=== PATIENT | female | born 1965 | race Caucasian/White ===

== ENCOUNTER 2017-04-10 22:09 | Emergency (ER) | payer MEDICAID ==
[~2017-04-10] VITALS: Ht 172.7 cm; Wt 99.8 kg
[~2017-04-10 22:09] MED LIST: ASPIRIN325 PO; BACTRIM DS TAB1 EACH PO; CATAPRES-TTS 10.1 MG TD; GLUCOTROL5 MG PO; HYDROCODONE-AP1 EAC6 PO; KEFLEX500 M1 PO; LOPRESSOR50 PO; LOVASTATIN 20 M20 MG PO; METFORMIN HCL850 MG PO; NICOTINE TRANSD21 M1 TRANSDERM; PRINIVIL20 MG PO; TOPROL XL50 MG PO; ZESTRIL20 MG
[2017-04-10] MEDS ORDERED: NORCO 5-325 TA1 EAC1 PO (23:42)
[2017-04-11 00:07] VITALS: BP 126/89
== END 2017-04-11 00:11 | disposition home or self-care (01) ==
LOC: M.ERS 22:09
DX: S00.83XA Contusion of other part of head, initial encounter (principal); S40.012A Contusion of left shoulder, initial encounter; S40.011A Contusion of right shoulder, initial encounter; I10 Essential (primary) hypertension; E11.9 Type 2 diabetes mellitus without complications; M19.90 Unspecified osteoarthritis, unspecified site; Z90.49 Acquired absence of other specified parts of digestive tract; W01.10XA Fall on same level from slipping, tripping and stumbling with subsequent striking against unspecified object, initial encounter; Y93.89 Activity, other specified; Y92.098 Other place in other non-institutional residence as the place of occurrence of the external cause; Y99.8 Other external cause status

== ENCOUNTER 2017-06-12 23:32 | Inpatient (IN) | payer OTHER, MEDICAID ==
[~2017-06-12] VITALS: Ht 172.7 cm; Wt 76.2 kg
[~2017-06-12 23:32] MED LIST changes: +NORCO 5-325 TA1 EAC1 PO
[2017-06-12 23:37] VITALS: BP 123/78
[2017-06-13 00:49] LABS: ABSOLUTE EOSINOPHILS 0.1 thou/uL (0.0-0.7); ABSOLUTE NEUTROPHILS 7.9 thou/uL (1.6-8.1); BASOPHILS 0.2 %; EOSINOPHILS 1.1 %; HEMATOCRIT 41.1 % (37.0-47.0); HEMOGLOBIN 13.8 gm/dL (12.0-15.0); LYMPHOCYTES 18.2 %; MCH 32.1 pg (26.0-34.0); MCHC 33.4 g/dL (28.0-37.0); MCV 96.2 fL (80.0-100.0); MONOCYTES 9.3 %; MPV 8.3 fl. (7.2-11.1); NUCLEATED RBCS 0 /100WBC; PLATELET COUNT* 227 thou/uL (150-400); POLYS 71.2 %; RBC 4.28 mil/uL (4.20-5.00); RDW-CV 14.3 % (10.5-14.5); WBC 11.1 thou/uL (4.0-11.0)
[2017-06-13 00:51] LABS: ALBUMIN 2.2 g/dL (3.4-5.0); CALCIUM 10.2 mg/dL (8.5-10.1); CREATININE 1.2 mg/dL (0.6-1.3); POTASSIUM 3.5 mmol/L (3.5-5.1); TOTAL BILIRUBIN 0.3 mg/dL (<0.1-1.0); TOTAL PROTEIN 6.4 g/dL (6.4-8.2)
--- NOTE | 2017-06-13 02:50 | NUR ---
ACCUCHECK = 304 RN NOTIFIED
[2017-06-13 03:02] VITALS: BP 124/83
[2017-06-13 04:00] VITALS: BP 115/78
--- NOTE | 2017-06-13 05:41 | NUR ---
RECEIVED REPORT FROM ER NURSE STEFANO AT 0245. PT ARRIVED TO UNIT AT 0310. VOICED NO CONCERNS, CARDIAC MONIOTOR IN PLACE, TRACING SINUS RHYTHM WITH PVC. IV FLUIDS INFUSING, CALL LIGHT WITHIN REACH.
[2017-06-13 07:30] VITALS: BP 140/78
[2017-06-13 09:08] LABS: URINE BILIRUBIN NEGATIVE (Negative); URINE BLOOD TRACE (Negative); URINE CLARITY CLEAR; URINE COLOR YELLOW; URINE GLUCOSE-RANDOM 2+ (Negative); URINE KETONES 1+ (Negative); URINE LEUKOCYTES-REFLEX NEGATIVE (Negative); URINE NITRITE-REFLEX NEGATIVE (Negative); URINE PROTEIN TRACE (Negative); URINE SPECIFIC GRAVITY 1.015 (1.005-1.030)
[2017-06-13 09:13] LABS: CALCIUM 9.7 mg/dL (8.5-10.1); CREATININE 0.7 mg/dL (0.6-1.3); POTASSIUM 3.1 mmol/L (3.5-5.1)
[2017-06-13 09:15] LABS: AMP/METHAMP POSITIVE (Negative); BARBITURATES Negative (Negative); BENZODIAZEPINES Negative (Negative); COCAINE Negative (Negative); METHADONE Negative (Negative); OPIATES Negative (Negative); PCP Negative (Negative); THC POSITIVE (Negative)
[2017-06-13 09:17] LABS: CASTS None Seen /LPF (None Seen); CRYSTALS None Seen /LPF (None Seen); MUCUS None Seen strn/LPF (None Seen); SQUAMOUS >10 Many /LPF (0-3); URINE RBC 3-10 Few /HPF (0-2); URINE WBC-REFLEX 6-15 Few /HPF (0-5); YEAST-REFLEX Present (None Seen)
--- NOTE | 2017-06-13 09:21 | NUR ---
RECEIVED PT CARE 0700. PT IS ALERT AND ORIENTED X4. VSS. SKILL TRAINING PROGRAM COORDINATOR TRACING ST. HEART RATE LOW 100'S. PATIENT DENIES ANY SOA. O2 SAT 94% ON ROOM AIR. UP INDEPENDENTLY IN ROOM WITH BATHROOM PRIVILEDGES. GAIT IS STEADY. AM ASSESSMENT CHARTED. MEDS PER MAR. IVF INFUSING. URINE SENT TO LAB FOR UA AND SCREEN. KEEPING CALL LIGHT WITHIN REACH. WILL CONTINUE PLAN OF CARE.
[2017-06-13 11:29] VITALS: BP 186/99
--- NOTE | 2017-06-13 14:25 | NUR ---
CM ASSESSMENT: Pt is A&O. Resides at home with her kids. Independent with ADLs, continues to work outside of the home. No DME. No hx of HH or SNF. CM to assist with setting up PCP appt at dc. Goal is to return home once medically stable for dc.
[2017-06-13 15:08] VITALS: BP 119/73
--- NOTE | 2017-06-13 17:28 | NUR ---
PATIENT PROGRESSING TOWARDS GOALS. PAIN CONTROLLED WITH PRN PAIN MEDICATION. NO COMPLAINTS OF SOA THIS SHIFT. UP IN ROOM INDEPENDENTLY WITH BATHROOM PRIVILEDGES. GAIT IS STEADY. SHE IS TOLERATING HER DIET WELL WITHOUT ANY NAUSEA OR VOMITING. HOURLY ROUNDING CHARTED. CALL LIGHT WITHIN REACH. WILL CONTINUE TO MONITOR.
[2017-06-13 19:08] LABS: GLYCOHEMOGLOBIN (HGB A1C) 13.4 % (4.8-5.6)
[2017-06-13 20:00] VITALS: BP 135/83
[2017-06-14 04:00] VITALS: BP 134/88
--- NOTE | 2017-06-14 04:28 | NUR ---
ASSUMED CARE OF PT AT 1915, NURSING ASSESSMENT COMPLETED AT START OF SHIFT, PT MED SURG STATUS. DENIES PAIN AT START OF SHIFT, HOURLY ROUNDING COMPLETED. AT 2200, PT C/O BLOODY PILLOWCASE, MODERATE AMOUNT OF PINK, THICK, PURULENT DRAINAGE OBSERVED FROM ABCESS. CLEANED WOUND, REPACKED AND COVERED WITH ABD PAD THIS SHIFT. DRESSING REMAINS INTACT. AT 0400, PT C/O FEELING EXTREMILY ANXIOUS, STATED SHE WANTED HER NICOTINE PATCH OR SHE WOULD LEAVE AMA. OLD NICOTINE PATCH REMOVED FROM RIGHT UPPER BACK AND NEW ONE PLACED ON LEFT UPPER BACK. PT CALM AND RESTING IN BED AT THIS TIME.
[2017-06-14 05:25] LABS: HEMATOCRIT 41.7 % (37.0-47.0); HEMOGLOBIN 13.7 gm/dL (12.0-15.0); MCHC 32.9 g/dL (28.0-37.0); MCV 97.2 fL (80.0-100.0); MPV 8.4 fl. (7.2-11.1); RBC 4.29 mil/uL (4.20-5.00); RDW-CV 14.3 % (10.5-14.5); WBC 7.8 thou/uL (4.0-11.0)
[2017-06-14 05:41] LABS: ALBUMIN 1.8 g/dL (3.4-5.0); CALCIUM 10.1 mg/dL (8.5-10.1); CREATININE 0.8 mg/dL (0.6-1.3); MAGNESIUM 1.4 mg/dL (1.8-2.4); POTASSIUM 4.3 mmol/L (3.5-5.1); TOTAL BILIRUBIN 0.3 mg/dL (<0.1-1.0); TOTAL PROTEIN 5.8 g/dL (6.4-8.2)
[2017-06-14 07:45] VITALS: BP 137/79
--- NOTE | 2017-06-14 08:13 | NUR ---
RECIEVED REPORT FROM PEDRITO AND ASSUMED CARE OF PT @ 0467. PT IS A/O X4,VSS,MED-SURG STATUS.LUNG SOUNDS ARE CLEAR ON ROOM AIR.LAST BM WAS ON 06/11/17 WITH SOFT ABDOMEN AND ACTIVE BOWEL SOUNDS.IV RIGHT FOREARM PATENT WITH NS RUNNING AT 130ML/HR.PT IS CALM AND COOPERATIVE WITH NO C/O PAIN AT TIME OF ASSESSMENT. PT IS UP AD SHARON.PT WAS LEFT SLEEPING IN BED WITH CALL LIGHT IN PLACE. WILL CONTINUE TO MONITOR.
--- NOTE | 2017-06-14 15:32 | NUR ---
REPORT GIVEN TO CONNIE.PT NOTIFIED OF TRANSFER.ALL PERSONAL BELONGINGS PACKED AND TAKEN WITH PT.
--- NOTE | 2017-06-14 20:12 | NUR ---
PATIENT TO ROOM 305 THIS AFTERNOON, DENIES PAIN, COMPLIANT WITH CARE, A/O, UP AD SHARON. PATI IV ABT WITHOUT DIFF, INCISION TO UPPER THORACIC MIDLINE AREA UNREMARKABLE, WARM COMPRESS PLACED AGAINST INCISION, DRAINING PURULENT BROWN THICK FLUID IN MOD AMT. PROGRESSING WELL TOWARD DISCHARGE GOALS, AGREE WITH PRIOR ASSESSMENT, CONT POC.
[2017-06-15 00:38] VITALS: BP 161/84
[2017-06-15 04:32] LABS: HEMATOCRIT 42.6 % (37.0-47.0); HEMOGLOBIN 13.8 gm/dL (12.0-15.0); MCH 31.5 pg (26.0-34.0); MCHC 32.4 g/dL (28.0-37.0); MCV 97.3 fL (80.0-100.0); MPV 8.3 fl. (7.2-11.1); RBC 4.38 mil/uL (4.20-5.00); RDW-CV 14.2 % (10.5-14.5)
[2017-06-15 04:44] LABS: CALCIUM 10.3 mg/dL (8.5-10.1); CREATININE 0.7 mg/dL (0.6-1.3); MAGNESIUM 1.6 mg/dL (1.8-2.4); POTASSIUM 4.3 mmol/L (3.5-5.1)
--- NOTE | 2017-06-15 06:07 | NUR ---
ASSESSMENT COMPLETE. PT SLEPT MOST OF THE NIGHT. PRN PAIN MEDICATION GIVEN ONCE NEEDED. PT IS ON ROOM AIR WITH ADEQAUTE SATS. PT DENIES N/V. DRESSING TO BACK C/D/I. PT IS UP AD SHARON WITH STEADY GAIT. SEE ASSESSMENT AND VITALS FOR OTHER DETAILS. CALL LIGHT WITHIN REACH, WILL CONTINUE TO MONITOR
[2017-06-15 08:15] VITALS: BP 155/106
--- NOTE | 2017-06-15 14:02 | NUR ---
SW met with pt and provided list of resources and of referral for possible primary care physicians for pt to choose to follow up with after dc from the hospital. Pt said okay and was sleepy at the time. SW to continue to follow.
[2017-06-15 15:15] VITALS: BP 182/110
--- NOTE | 2017-06-15 17:10 | NUR ---
PATIENT HAS BEEN A/O X 4 THIS SHIFT. MEDICATED FOR PAIN X 1 WITH FENTANYL WITH GOOD RELIEF. IV ANTIBIOITCS INFUSING PER ORDERS. UP AD SHARON IN ROOM. GIVEN MIRALAX FOR COMPLAINTS OF CONSTIPATION. BP ELEVATED AND DR BURGOS NOTIFIED, NEW ORDERS RECEIVED. DRESSING INTACT TO BACK, WARM COMPRESSES GIVEN. ENCOURAGED SHOWERING TODAY. PATIENT UPDATED ON NEW MEDS AND ORDERS. HOURLY ROUNDING COMPLETED. CALL LIGHT WITHIN REACH. WILL CONTINUE WITH PLAN OF CARE.
[2017-06-16] VITALS (7 sets, daily range): BP systolic 148–157; BP diastolic 84–87
[2017-06-16 04:25] LABS: HEMATOCRIT 44.7 % (37.0-47.0); HEMOGLOBIN 14.7 gm/dL (12.0-15.0); MCH 31.8 pg (26.0-34.0); MCHC 32.9 g/dL (28.0-37.0); MCV 96.8 fL (80.0-100.0); MPV 7.9 fl. (7.2-11.1); RBC 4.61 mil/uL (4.20-5.00); RDW-CV 14.4 % (10.5-14.5); WBC 6.8 thou/uL (4.0-11.0)
[2017-06-16 05:01] LABS: ALBUMIN 2.2 g/dL (3.4-5.0); CALCIUM 10.5 mg/dL (8.5-10.1); CREATININE 0.7 mg/dL (0.6-1.3); MAGNESIUM 1.7 mg/dL (1.8-2.4); POTASSIUM 4.6 mmol/L (3.5-5.1); TOTAL BILIRUBIN 0.3 mg/dL (<0.1-1.0); TOTAL PROTEIN 5.9 g/dL (6.4-8.2)
--- NOTE | 2017-06-16 05:51 | NUR ---
ASSESSMENT COMPLETE. PT SLEPT THROUGH THE NIGHT WITHOUT ANY CONCERNS. PT DENIES NEED FOR PAIN MEDICATION. PT DENIES N/V. PT IS ON ROOM AIR WITH ADEQAUTE SATS, VITALS STABLE. PT GIVEN IV ABX ORDERED, REFUSES IV FLUIDS. PT REPORTS CONSTIPATION, PRN MIRALAX GIVEN. DRESSING TO ABCESS C/D/I. PT IS UP AD SHARON WITH STEADY GAIT. SEE ASSESSMENT AND VITALS FOR OTHER DETAILS. CALL LIGHT WITHIN REACH, WILL CONTINUE PLAN OF CARE
[2017-06-16] MEDS ORDERED: CLEOCIN HCL150 MG PO (08:08)
[2017-06-16] MEDS ORDERED: GLUCOPHAGE500 MG PO (08:08)
[2017-06-16] MEDS ORDERED: LISINOPRIL20 MG PO (08:08)
[2017-06-16] MEDS ORDERED: GLUCOTROL5 MG PO (08:08)
[2017-06-16] MEDS ORDERED: NORVASC10 MG PO (08:08)
[2017-06-16] MEDS ORDERED: NORCO 7.5-3251 EACH PO (08:08)
--- NOTE | 2017-06-16 09:49 | NUR ---
SALOMÓN met with pt to discuss dc home today and HH services for wound care. Pt said that she would like the services arranged if possible and confirmed pt does have a type of Medicaid but [facility] Medicaid. SALOMÓN called [facility] services at [phone] and provided referral, referral accepted. SALOMÓN faxed information and dc orders, med list, info on wound care to fax [phone] and confirmed with [facility] that referral was received. Pt also said that her niece is a nurse and may be able to help change dressing as well until the HH can meet with pt on Sunday.
--- NOTE | 2017-06-16 12:03 | NUR ---
EDGARD IS ALERT AND ORIENTED TODAY, VITAL SIGNS STABLE ON ROOM AIR. DRESSING CHANGED AND PHOTO TAKEN PRIOR TO DISCHARGE. DISCHARGE INSTRUCTIONS GIVEN, PRESCRIPTIONS GIVEN AND QUESTIONS ANSWERED FOR PATIENT AND FAMILY.
== END 2017-06-16 11:50 | disposition home health service (06) | DRG 540 ==
LOC: M.ERS 23:32 → M.2W 06-13 02:33 → M.TBA-ER 06-13 02:33 → M.2W 06-13 02:47 → M.3W 06-14 15:36
PROVIDERS: Emergency Medicine; Family Medicine; Internal Medicine; ADMIT Internal Medicine
PROC: 0H9BXZZ Drainage of Right Upper Arm Skin, External Approach (ICD-10-PCS; principal; 2017-06-13)
DX: M86.8X1 Other osteomyelitis, shoulder (principal); E87.1 Hypo-osmolality and hyponatremia; I25.10 Atherosclerotic heart disease of native coronary artery without angina pectoris; F17.210 Nicotine dependence, cigarettes, uncomplicated; I10 Essential (primary) hypertension; E11.65 Type 2 diabetes mellitus with hyperglycemia; F12.90 Cannabis use, unspecified, uncomplicated; F15.90 Other stimulant use, unspecified, uncomplicated; Z90.49 Acquired absence of other specified parts of digestive tract; Z79.1 Long term (current) use of non-steroidal anti-inflammatories (NSAID)

== ENCOUNTER 2018-02-13 14:24 | Inpatient (IN) | payer OTHER, MEDICAID ==
[~2018-02-13] VITALS: Ht 167.6 cm; Wt 77.6 kg
[2018-02-13] VITALS (9 sets, daily range): BP systolic 123–161; BP diastolic 70–89
[~2018-02-13 14:24] MED LIST changes: +CLEOCIN HCL150 MG PO; +GLUCOPHAGE500 MG PO; +LISINOPRIL20 MG PO; +NORCO 7.5-3251 EACH PO; +NORVASC10 MG PO
[2018-02-13] MEDS ORDERED: CARVEDILOL6.25 M1 PO (14:33)
[2018-02-13] MEDS ORDERED: LIPITOR 20 MG T20 M1 PO (14:34)
[2018-02-13 14:55] LABS: ABSOLUTE EOSINOPHILS 0.2 thou/uL (0.0-0.7); ABSOLUTE LYMPHOCYTES 2.4 thou/uL (0.8-5.3); ABSOLUTE MONOCYTES 0.6 thou/uL (0.0-1.2); ABSOLUTE NEUTROPHILS 6.1 thou/uL (1.6-8.1); BASOPHILS 0.2 %; EOSINOPHILS 2.3 %; HEMATOCRIT 42.2 % (37.0-47.0); HEMOGLOBIN 14.1 gm/dL (12.0-15.0); LYMPHOCYTES 25.5 %; MCH 32.5 pg (26.0-34.0); MCHC 33.5 g/dL (28.0-37.0); MONOCYTES 6.4 %; MPV 7.6 fl. (7.2-11.1); NUCLEATED RBCS 0 /100WBC; PLATELET COUNT* 277 thou/uL (150-400); POLYS 65.6 %; RBC 4.35 mil/uL (4.20-5.00); RDW-CV 13.3 % (10.5-14.5); WBC 9.3 thou/uL (4.0-11.0)
[2018-02-13 15:01] LABS: CALCIUM 9.9 mg/dL (8.5-10.1); CREATININE 1.1 mg/dL (0.6-1.3); POTASSIUM 3.6 mmol/L (3.5-5.1)
[2018-02-13 15:11] LABS: ALBUMIN 2.9 g/dL (3.4-5.0); MAGNESIUM 1.4 mg/dL (1.8-2.4); TOTAL BILIRUBIN 0.5 mg/dL (<0.1-1.0); TOTAL PROTEIN 7.2 g/dL (6.4-8.2)
[2018-02-13 15:16] LABS: TROPONIN-I LEVEL 1.71 ng/mL (<0.06)
[2018-02-13 16:22] LABS: CHOLESTEROL 107 mg/dL (<200); HDL CHOLESTEROL 40 mg/dL (>40); LDL CHOLESTEROL 51 mg/dL (<100); SERUM ASSESSMENT Clear; TC:HDL 2.7 Ratio (Not establshd); TRIGLYCERIDE 84 mg/dL (<150); VLDL 17 mg/dL (<40)
[2018-02-14] VITALS (7 sets, daily range): BP systolic 110–168; BP diastolic 72–98
[2018-02-14 05:31] LABS: HEMATOCRIT 39.2 % (37.0-47.0); HEMOGLOBIN 13.3 gm/dL (12.0-15.0); MCH 32.8 pg (26.0-34.0); MCHC 33.9 g/dL (28.0-37.0); MCV 96.8 fL (80.0-100.0); MPV 7.8 fl. (7.2-11.1); RBC 4.05 mil/uL (4.20-5.00); RDW-CV 13.4 % (10.5-14.5); WBC 8.9 thou/uL (4.0-11.0)
[2018-02-14 07:06] LABS: CALCIUM 9.5 mg/dL (8.5-10.1); CREATININE 0.9 mg/dL (0.6-1.3); MAGNESIUM 1.4 mg/dL (1.8-2.4); POTASSIUM 3.7 mmol/L (3.5-5.1)
--- NOTE | 2018-02-14 08:06 | CON ---
[address] [address] CONSULTATION Name: TRI MORSE Room: [address] IN ..#: [id number] Admission: 02/13/18 Attend Phys: Guru Dominguez Discharge: Date of : 69 Report #: [id number] THIS REPORT FOR: //name// CC: NANO physician/PCP Jamaal Kelly DATE OF SERVICE: 02/13/2018 INDICATION: Non-ST elevation myocardial infarction. HISTORY OF PRESENT ILLNESS: The patient is a 52-year-old white female with history of coronary artery disease. She reports percutaneous coronary intervention on 2 separate occasions remotely. She states one stent was placed to the " maker" many years ago. The patient states since last Sunday, she has been having intermittent chest pain. An EKG in the Emergency Room shows sinus rhythm with PACs without acute ST segment elevation. Her troponin is 1.71. She states the pain presently is stable, but has been intermittent throughout last week and then through the early part of this week. She is without other cardiac complaint at this time. PAST MEDICAL HISTORY: 1. Coronary artery disease with myocardial infarction treated in approximately 2009 and 2015. 2. Type 2 diabetes mellitus. 3. Hyperlipidemia. 4. Tobacco use. FAMILY HISTORY: Positive for coronary artery disease. SOCIAL HISTORY: The patient smokes tobacco. ALLERGIES: None documented. HOME MEDICATIONS: Amlodipine 10 mg daily, atorvastatin 20 mg daily, carvedilol 6.25 mg b.i.d., glipizide 5 mg b.i.d., metformin 500 mg b.i.d. REVIEW OF SYSTEMS: A 14-point review of systems as per HPI, otherwise unremarkable. PHYSICAL EXAMINATION: VITAL SIGNS: Blood pressure 155/86, pulse 64 and regular. GENERAL: This is a pleasant white female who does not appear to be in acute distress. HEENT: Extraocular muscles intact. Mucous membranes moist. NECK: Shows no obvious jugular venous distention. There are no carotid bruits. CHEST: Reveals diminished breath sounds with slight expiratory [place] [address] CONSULTATION Name: MORSETRI Room: [address] IN [facility]#: [id number] Admission: 02/13/18 Attend Phys: Guru Dominguez Discharge: Date of : 69 Report #: [id number] not appreciate rales. CARDIOVASCULAR: Reveals a regular rhythm, normal S1 and S2. I do not appreciate gallop or murmur. ABDOMEN: Reveals normal bowel sounds. The abdomen is soft and nontender. EXTREMITIES: Shows no edema. Peripheral pulses 2+ and palpable. SKIN: Warm and dry. A 12-lead EKG shows sinus rhythm with possible inferior Q-waves. There are occasional premature atrial contractions. No acute ST segment abnormalities noted. LABORATORY DATA: Labs are reviewed. Electrolytes are within normal limits. BUN 20, creatinine 1.1, serum glucose 182. LFTs within normal limits. Initial troponin is 1.71. NT-proBNP is 1516. White blood cell count 9.3, hemoglobin 14.1, platelet count 277,000. IMPRESSION AND RECOMMENDATIONS: 1. Non-ST elevation myocardial infarction. We will proceed directly to the catheterization lab for coronary angiography and possible intervention. Further treatment will be pending the results of that study. 2. Coronary artery disease. Continue daily aspirin. 3. Hypertension. Continue carvedilol at current dose. 4. Diabetes per hospitalist. 5. Chronic tobacco use, cessation advised. <ELECTRONICALLY SIGNED> By: Bernardo Lawrence MD, FACC 02/14/18 0806 1601 1839Micedmar Lawrence MD, FACC /nt
[2018-02-15] VITALS: BP 159/77
[2018-02-15 04:00] VITALS: BP 132/97
[2018-02-15 08:02] VITALS: BP 145/77
[2018-02-15 12:00] VITALS: BP 151/89
--- NOTE | 2018-02-15 14:42 | EKG ---
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: : 1965 Requested By: Marlon Edmond Order Number: [id number] MD: Travis Bullock Measurements Intervals [place] Rate: 73 P: 71 GA: 179 QRS: -14 QRSD: 85 T: -20 QT: 379 QTc: 418 Interpretive Statements Sinus rhythm Atrial premature complex Inferior infarct, age indeterminate anteroseptal scar Compared to ECG 06/28/2014 00:12:35 Atrial premature complex(es) now present Myocardial infarct finding now present Electronically Signed On 02-15-2018 14:42:06 TUNG NUT GROWER by Travis Bullock [email or web address] <ELECTRONICALLY SIGNED> By: Travis Bullock MD, [facility] 02/15/18 1442 1426 1426 Travis Bullock MD, [facility] /EPI
--- NOTE | 2018-02-15 14:49 | EKG ---
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 02/15/18 1449 0500 0500 Travis Bullock MD, FAC /EPI
[2018-02-15 14:50] VITALS: BP 168/94
[2018-02-15] MEDS ORDERED: ASPIR 8181 MG PO (15:17)
[2018-02-15] MEDS ORDERED: NITROGLYCERIN0.4 MG SUBLING (15:20)
[2018-02-15] MEDS ORDERED: LOPRESSOR25 PO (15:22)
[2018-02-15] MEDS ORDERED: BRILINTA90 MG PO (15:23)
[2018-02-15 15:24] VITALS: BP 168/94
--- NOTE | 2018-02-16 11:58 | CARD ---
[address] [address] CARDIAC CATH REPORT Name: TRI MROSE Room: [address] IN ..#: [id number] Admission: 02/13/18 Attend Phys: Guru Dominguez Discharge: 02/15/18 Date of : 69 Report #: [id number] THIS REPORT FOR: //name// APPROVED REPORT Study performed: 02/13/2018 15:55:43 Patient Details Patient Status: In-Patient Room #: 212 The patient is a 52 year-old female Event Personnel Bernardo Lawrence Medical Parasitologist, Travis Bullock Beef Breaker, Freda Marx RN Office Clerk, Minoo Ortega RN Monitor, Lamont Haney (R) Scrub Procedures Performed Art Access - R femoral artery* Left Heart Cath w/or w/o Coronaries C ETHAN Revasc AMI Total/Sub Single RCA AMIREVSING Hemostasis w/ Angioseal Indication Non-STEMI Risk Factors Hypercholesterolemia, Hypertension Admission/Lab Medications/Medications given during procedure Aspirin, Platelet Aff. Inhib., Angiomax bolus and infusion Procedure Narrative The patient was brought urgently to the Cardiac Catheterization Laboratory and was prepped and draped in a sterile manner. The right femoral was infiltrated with 2% Lidocaine subcutaneous anesthesia. A [place] 6 FR sheath was inserted into the right femoral artery. Coronary angiography was performed using coronary diagnostic catheters. The right coronary system was accessed and visualized with a 6Fr JR4 catheter. The left coronary system was accessed and visualized with a 6Fr JL4 catheter. The left ventricle was accessed and visualized with a 6Fr. Str. PIG catheter. Left ventricular/Aortic Valve gradient assessed via catheter pullback. Pre-demployment femoral angiogram was performed . Closure device was deployed with a 6 Fr Angioseal. The patient tolerated the procedure well and there were no complications associated with the procedure. [place] [address] CARDIAC CATH REPORT Name: TRI MORSE Room: [address]#: [id number] Admission: 02/13/18 Attend Phys: Guru Dominguez Discharge: 02/15/18 Date of : 69 Report #: [id number] Intraoperative Conscious Sedation Fentanyl 50 mcg Dose: 1696 mGy Contrast Type and Amount: Visipaque 380 ml Diagnostic Cath Left Main 0% narrowing LAD For the proximal LAD narrowing with tandem 80% mid vessel stenosis and 60% tubular distal narrowing Circumflex 75% proximal stenosis with 90% tubular distal stenosis Right Coronary 90% tubular proximalmid vessel narrowing with prominent intraluminal thrombus and 75% distal right coronary in-stent restenosis Left Ventriculography The left ventricle is normal in size with normal contractility. The left ventricular ejection fraction is estimated to be 60%. Left ventricular wall motion abnormalities are not present. There is no mitral insufficiency. Hemodynamics The aortic pressure is 133/73 mmHg with a mean of 98 mmHg. The left ventricular pressure is 147/2 mmHg with a mean of mmHg. The left ventricular end diastolic pressure is 13 mmHg. There was no gradient across the aortic valve upon pullback. PCI Technique Lesion Anticoagulation was achieved with Angiomax. and aggrastat Patient was preloaded with Angiomax IV 11 ml. Percutaneous coronary intervention was performed on the proximal right coronary artery. The lesion stenosis prior to intervention was 90% with JASWINDER 3 flow. A 6F JR 4.0 Guide Catheter was used to engage the right ostium. A IG: ProwaterFlex 180CM Interventional Guidewire was used to cross the lesion. BALLOON DILATION A Balloon catheter Mini Trek RX 2.0 X 15 was inserted and inflated up to 12.00atm for 11seconds. STENT DEPLOYMENT A drug-eluting stent Xience Zina 3.0X38mm was inserted and inflated up to 18.00atm for 14seconds. Additional Inflation: 22.00atm for 11seconds. [place] [address] CARDIAC CATH REPORT Name: LAURYN MORSECLEMENTINE FAYE Room: [address] IN M.R.#: [id number] Admission: 02/13/18 Attend Phys: Guru Dominguez Discharge: 02/15/18 Date of : 69 Report #: [id number] Final angiography reveals 10 % stenosis with JASWINDER 3 flow. PCI Technique Lesion 2 Percutaneous Coronary Intervention was performed on the Distal right coronary artery. The lesion stenosis prior to intervention was 75% with JASWINDER 3 flow. Balloon Dilation A Balloon catheter NC Trek RX 2.5 X 12 was inserted and inflated up to 16.00atm for 8seconds. Additional Inflation: 16.00atm for 10seconds. Stent Deployment A drug-eluting stent Xience Zina 2.5X18mm was inserted and inflated up to 14.00atm for 10seconds. Additional Inflation: 15.00atm for 7seconds. Final angiography reveals 0 % stenosis with JASWINDER 3 flow. Conclusion #1 significant coronary artery disease characterized by following: A 90% proximal right coronary stenosis with prominent intraluminal thrombus associated with a non-ST segment elevation myocardial infarction with 75% distal right coronary in-stent restenosis B 40% proximal LAD with narrowing with tandem 80% mid vessel stenoses and 60% tubular distal narrowing C nondominant circumflex with 75% proximal stenosis and 90% tubular distal stenosis #2 normal left ventricular systolic function, estimate ejection fraction being 60% #3 normal left-sided hemodynamics study #4 successful percutaneous coronary intervention with deployment of drug-eluting stent at site of 90% proximalmid right coronary stenosis with prominent intraluminal thrombus with 10% residual narrowing no residual thrombus noted and JASWINDER-3 flow the distal vessel #5 successful percutaneous coronary intervention [place] [address] CARDIAC CATH REPORT Name: TRI MORSE Room: [address]#: [id number] Admission: 02/13/18 Attend Phys: Guru Dominguez Discharge: 02/15/18 Date of : 69 Report #: [id number] drug-eluting stent at site of 75% distal right coronary in-stent restenosis with 0% residual narrowing Recommendations Smoking Cessation Cardiac Risk Reduction Program Aggressive Medical Therapy Medications Administered Aspirin (any) Ticagrelor Diagnostic Cath Approved by: Bernardo Lawrence MD Date/Time: 02/16/2018 11:56:59 <ELECTRONICALLY SIGNED> By: Travis Bullock MD, FACC 02/16/18 1158 1158 1158Travis Bullock MD, FACC /INF
== END 2018-02-15 15:58 | disposition home or self-care (01) | DRG 246 ==
LOC: M.ERS 14:24 → M.TBA-ER 15:33 → M.2W 17:46
PROVIDERS: Emergency Medicine Emergency Medical Services; Internal Medicine Cardiovascular Disease; ADMIT Internal Medicine
PROC: 027035Z Dilation of Coronary Artery, One Artery with Two Drug-eluting Intraluminal Devices, Percutaneous Approach (ICD-10-PCS; principal; 2018-02-13)
PROC: 4A023N7 Measurement of Cardiac Sampling and Pressure, Left Heart, Percutaneous Approach (ICD-10-PCS; principal; 2018-02-13)
PROC: B211YZZ Fluoroscopy of Multiple Coronary Arteries using Other Contrast (ICD-10-PCS; principal; 2018-02-13)
DX: T82.855A Stenosis of coronary artery stent, initial encounter (principal); I21.4 Non-ST elevation (NSTEMI) myocardial infarction; E11.9 Type 2 diabetes mellitus without complications; E78.5 Hyperlipidemia, unspecified; F17.210 Nicotine dependence, cigarettes, uncomplicated; I25.10 Atherosclerotic heart disease of native coronary artery without angina pectoris; I10 Essential (primary) hypertension; I25.2 Old myocardial infarction; Z95.5 Presence of coronary angioplasty implant and graft; Z90.49 Acquired absence of other specified parts of digestive tract; Y83.8 Other surgical procedures as the cause of abnormal reaction of the patient, or of later complication, without mention of misadventure at the time of the procedure; Y92.89 Other specified places as the place of occurrence of the external cause; Z82.49 Family history of ischemic heart disease and other diseases of the circulatory system; Z71.6 Tobacco abuse counseling; Z28.21 Immunization not carried out because of patient refusal

== ENCOUNTER 2018-03-08 09:43 | Observation (INO) | payer OTHER, MEDICAID ==
[2018-03-08] VITALS (16 sets, daily range): BP systolic 135–175; BP diastolic 80–102
[~2018-03-08] VITALS: Ht 160 cm; Wt 81.6 kg
[~2018-03-08 09:43] MED LIST changes: +ASPIR 8181 MG PO; +BRILINTA90 MG PO; +CARVEDILOL6.25 M1 PO; +LIPITOR 20 MG T20 M1 PO; +LOPRESSOR25 PO; +NITROGLYCERIN0.4 MG SUBLING
[2018-03-08 10:11] LABS: ABSOLUTE EOSINOPHILS 0.4 thou/uL (0.0-0.7); ABSOLUTE LYMPHOCYTES 2.4 thou/uL (0.8-5.3); ABSOLUTE MONOCYTES 0.4 thou/uL (0.0-1.2); ABSOLUTE NEUTROPHILS 5.5 thou/uL (1.6-8.1); BASOPHILS 0.5 %; EOSINOPHILS 4.1 %; HEMATOCRIT 41.1 % (37.0-47.0); HEMOGLOBIN 13.7 gm/dL (12.0-15.0); LYMPHOCYTES 27.4 %; MCH 31.9 pg (26.0-34.0); MCHC 33.4 g/dL (28.0-37.0); MCV 95.7 fL (80.0-100.0); MONOCYTES 5.1 %; MPV 7.7 fl. (7.2-11.1); NUCLEATED RBCS 0 /100WBC; PLATELET COUNT* 292 thou/uL (150-400); POLYS 62.9 %; RBC 4.29 mil/uL (4.20-5.00); RDW-CV 13.2 % (10.5-14.5); WBC 8.7 thou/uL (4.0-11.0)
[2018-03-08 10:23] LABS: ANION GAP 5 mmol/L (7-16); BUN 19 mg/dL (7-18); CALCIUM 10.2 mg/dL (8.5-10.1); CHLORIDE 99 mmol/L (98-107); CO2 33 mmol/L (21-32); CREATININE 1.1 mg/dL (0.6-1.3); GLUCOSE 199 mg/dL (70-99); POTASSIUM 3.6 mmol/L (3.5-5.1); SODIUM 137 mmol/L (136-145)
[2018-03-08 10:26] LABS: PROTIME 10.5 Seconds (9.20-11.50)
[2018-03-08 10:48] LABS: ALBUMIN 3.1 g/dL (3.4-5.0); ALKALINE PHOSPHATASE 86 U/L (46-116); CK-MB MASS 1.3 ng/mL (<0.5-3.6); LIPASE 103 U/L (73-393); MAGNESIUM 1.3 mg/dL (1.8-2.4); NT-PRO BRAIN NAT PEPTIDE 687 pg/mL (<300); SGOT 16 U/L (15-37); SGPT 18 U/L (30-65); TOTAL BILIRUBIN 0.4 mg/dL (<0.1-1.0); TOTAL PROTEIN 7.7 g/dL (6.4-8.2); TROPONIN-I LEVEL <0.06 ng/mL (<0.06)
--- NOTE | 2018-03-08 15:49 | EKG ---
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: : 1965 Requested By: Reji Jensen Order Number: [id number] MD: Travis Bullock Measurements Intervals [place] Rate: 63 P: 66 GA: 178 QRS: -16 QRSD: 88 T: -35 QT: 410 QTc: 420 Interpretive Statements Sinus rhythm Inferior infarct, age indeterminate Compared to ECG 02/14/2018 05:00:36 No significant changes Electronically Signed On 03-08-2018 15:49:33 EXPERIMENTAL MACHINIST by Travis Bullock [email or web address] <ELECTRONICALLY SIGNED> By: Travis Bullock MD, [facility] 03/08/18 1549 0947 0947 Travis Bullock MD, [facility] /EPI
--- NOTE | 2018-03-08 16:44 | NUR ---
RECEIVED REPORT FROM YESENIA IN INFORMATION SECURITY MANAGER AND ASSUMED CARE OF PT @ 0833.PT IS A/O X4,VSS,TRACING SR ON THE MONITOR.ASSESSMENT CHARTED.IV PATENT WITH IVF INFUSING PER ORDERS.NO C/O PAIN.CATH SITE RIGHT GROIN CLEAN,DRY,AND INTACT.POST CATH PROTOCOL FOLLOWED.PT INSTRUCTED ON RIGHT LEG IMMOBILIZATION.PT LEFT RESTING IN BED WITH CALL LIGHT AND FALL PRECAUTIONS IN PLACE.WILL CONTINUE TO MONITOR.
--- NOTE | 2018-03-08 17:42 | NUR ---
VSS.CARDIAC MONITORING IN PLACE WITH NO CHANGES.PT REMAINS ON ROOM AIR.PT REMAINS ON BEDREST FOR POST CATH PROTOCOL.RIGHT GROIN CATH SITE CLEAN, DRY, AND INTACT.NO C/O PAIN.IV PATENT WITH IVF INFUSING PER ORDERS.VICTORIA SECURE AND PATENT BUT PT C/O FEELING LIKE SHE NEEDS TO URINATE.PT INFORMED OF PLAN OF CARE AND COMMUNICATES UNDERSTANDING.HOURLY ROUNDING COMPLETED FOR PT SAFETY.CALL LIGHT AND FALL PRECAUTIONS IN PLACE.WILL CONTINUE TO MONITOR FOR DURATION OF SHIFT.
[2018-03-09 00:15] VITALS: BP 166/85
[2018-03-09 04:00] VITALS: BP 140/84
--- NOTE | 2018-03-09 06:46 | NUR ---
PROGRESSION TOWARDS GOALS, NO CP OR CHEST DISCOMFORT THROUGHOUT SHIFT, NSR WITH PVC'S OCCASIONAL BIJEMINY TRACING COMPUTER NUMERICAL CONTROL GRINDER, RIGHT GROIN ANGIOSEAL REMAINS C/D/I WITHOUT HEMATOMA NOTED. DIBETIC ULCER TO RIGHT LATERAL LOWER EXTREMITIY AND ANTERIOR RIGHT FOOT, PICTURES TAKEN AND PLACED IN CHART, WOUND RN CONSULT PLACED, PT STATES HAS NO INSURANCE AND NO FUNDS TO F/U WITH WOUND CARE, PER PT HAS BEEN USING SILVADENE TO WOUND BED PRESCRIBED TO HER MOTHER. CLEANED WOUNDS WITH WOUND CLENSER, COVERED RIGHT CALF WITH VASOLINE GAUZE AND ABD PAD TAPED CLOSED WITH FOAM TAPE TO PROTECT UNTIL WOUND RN CONSULT, CLEANED WOUND TO RIGHT FOOT WITH WOUND CLENSER AND COVERED WITH BORDER DRESSING TO PROTECT AREA UNTIL WOUND RN CONSULT. ABLE TO GET UP OOB OFF BR AT 2124, PER PT REQUEST VICTORIA CATHETER REMOVED AT THAT TIME. VOIDING X1 AFTER VICTORIA REMOVED. NS 100CC/HR VIA INFUSION PUMP, MAGNESIUM 1.3, X4 MAGNESIUM SULFATE 400MG PO QID REPLACEMENT GIVEN, SERUM MAGNESIUM TO BE REDRAWN THIS AM. BOYFRIEND REMAINS AT BEDSIDE THROUGHOUT SHIFT. ULTRAM 100MG PO GIVEN X1 FOR C/O RIGHT LOWER EXTREMITY PAIN, HELPFUL FOR PAIN MANAGEMENT. RESTING QUIETLY WITH EYES CLOSED AFTER 0030, EASILY AROUSABLE TO VERBAL STIMULI, CALL LIGHT REMAINS IN REACH.
[2018-03-09 07:40] LABS: HEMATOCRIT 39.4 % (37.0-47.0); HEMOGLOBIN 13.1 gm/dL (12.0-15.0); MCH 31.5 pg (26.0-34.0); MCHC 33.3 g/dL (28.0-37.0); MCV 94.7 fL (80.0-100.0); MPV 7.5 fl. (7.2-11.1); RBC 4.16 mil/uL (4.20-5.00); RDW-CV 13.2 % (10.5-14.5); WBC 8.2 thou/uL (4.0-11.0)
[2018-03-09 07:45] VITALS: BP 134/84
[2018-03-09 07:57] LABS: ALBUMIN 2.9 g/dL (3.4-5.0); ALKALINE PHOSPHATASE 85 U/L (46-116); ANION GAP 8 mmol/L (7-16); BUN 11 mg/dL (7-18); CALCIUM 9.8 mg/dL (8.5-10.1); CHLORIDE 104 mmol/L (98-107); CHOLESTEROL 92 mg/dL (<200); CO2 28 mmol/L (21-32); CREATININE 0.8 mg/dL (0.6-1.3); GLUCOSE 119 mg/dL (70-99); HDL CHOLESTEROL 40 mg/dL (>40); LDL CHOLESTEROL 33 mg/dL (<100); POTASSIUM 3.8 mmol/L (3.5-5.1); SGOT 32 U/L (15-37); SGPT 18 U/L (30-65); SODIUM 140 mmol/L (136-145); TC:HDL 2.3 Ratio (Not establshd); TOTAL BILIRUBIN 0.3 mg/dL (<0.1-1.0); TOTAL PROTEIN 7.1 g/dL (6.4-8.2); TRIGLYCERIDE 99 mg/dL (<150); VLDL 20 mg/dL (<40)
[2018-03-09 08:02] LABS: SERUM ASSESSMENT Clear; TROPONIN-I LEVEL 3.84 ng/mL (<0.06)
--- NOTE | 2018-03-09 08:10 | NUR ---
RECEIVED REPORT FROM TOM AND ASSUMED CARE OF PT @ 7524.PT IS A/O X4,VSS,TRACING SR ON THE MONITOR.ASSESSMENT CHARTED.IV PATENT WITH IVF INFUSING PER ORDERS.PT IS CALM AND COOPERATIVEW WITH NO C/O PAIN AT TIME OF ASSESSMENT.PT IS UP AD SHARON IN ROOM WITH CALL LIGHT WITHIN REACH.WILL CONTINUE TO MONITOR.
[2018-03-09 10:44] VITALS: BP 155/94
[2018-03-09 11:30] VITALS: BP 137/86
--- NOTE | 2018-03-09 11:41 | CARD ---
[address] [address] CARDIAC CATH REPORT Name: TRI MORSE Room: [address] Mendel Bethea#: [id number] Admission: 03/08/18 Attend Phys: Guru Dominguez Discharge: Date of : 69 Report #: [id number] THIS REPORT FOR: //name// APPROVED REPORT Study performed: 03/08/2018 13:28:43 Patient Details Patient Status: ED Room #: The patient is a 52 year-old female Event Personnel Travis Bullock Fmd Teacher, Beatriz Mora RN Education Intern, Deborah Contreras RTR Monitor, Austen Long Scrub Procedures Performed Art Access - R femoral artery* Left Heart Cath w/or w/o Coronaries C ETHAN Place w/wo Plasty Single CIRC ETHAN Place w/wo Plasty Single LAD Hemostasis w/ Angioseal Indication Unstable angina Risk Factors Hypercholesterolemia, Hypertension Previous Procedures/Diagnoses Previous PCI, Previous MT Admission/Lab Medications/Medications given during procedure Aspirin, Platelet Aff. Inhib., Angiomax bolus and infusion Procedure Narrative The patient was brought electively to the Cardiac Catheterization Laboratory and was prepped and draped in a sterile manner. The right femoral was infiltrated with subcutaneous anesthesia. A [place] 6 FR sheath was inserted into the right femoral artery. Coronary angiography was performed using coronary diagnostic catheters. The right coronary system was accessed and visualized with a Diagnostic 6Fr JR4 catheter. The left coronary system was accessed and visualized with a Diagnostic 6Fr JL4 catheter. The left ventricle was accessed and visualized with a Diagnostic 6Fr staright pigtail catheter. Left ventricular/Aortic Valve gradient assessed via catheter pullback. Pre-demployment femoral [place] [address] CARDIAC CATH REPORT Name: TRI MORSE Room: [address] M.R.#: [id number] Admission: 03/08/18 Attend Phys: Guru Dominguez Discharge: Date of : 69 Report #: [id number] Closure device was deployed with a Fr Angioseal STS 6Fr. Hemostasis was obtained with manual pressure following sheath removal without any complications. The patient tolerated the procedure well and there were no complications associated with the procedure. There was no hematoma. Intraoperative Conscious Sedation Sedation start time: 1409 Case end Time: 1509 Fentanyl 100 mcg Versed 4 mg Fluoro Time: 18.7 minutes Dose: DAP 490360 cGycm2 1994 mGy Contrast Type and Amount: Visipaque 360 ml Coronary Angiography The patient's coronary anatomy is right dominant. Diagnostic Cath Left Main 0 Percent narrowing LAD 4% proximal LAD narrowing with 90% mid LAD stenosis and 70% diffuse distal LAD narrowing Circumflex Prominent though nondominant vessel with 80% focal proximal stenosis and 90% tubular distal stenosis Right Coronary Dominant vessel with widely patent proximal and distal stents and 30% narrowing at the acute margin Left Ventriculography Left Ventriculography was not performed. IVUS Findings NC Euphora 2.75x12 Hemodynamics The aortic pressure is 174/87 mmHg with a mean of 113 mmHg. The left ventricular pressure is 176/-3 mmHg with a mean of mmHg. The left ventricular end diastolic pressure is 14 mmHg. Pullback from the left ventricle to the aorta revealed no gradient across the aortic valve. PCI Technique Lesion Anticoagulation was achieved with Angiomax. Percutaneous coronary intervention was performed on the mid left anterior descending artery segment. The lesion stenosis prior to intervention was 90% with JASWINDER 3 flow. A 6FR XB 3.0 100CM Guide Catheter was used to engage the ostium. A BMW 190cm Interventional Guidewire [place] [address] CARDIAC CATH REPORT Name: TRI MORSE Room: [address]#: [id number] Admission: 03/08/18 Attend Phys: Guru Dominguez Discharge: Date of : 69 Report #: [id number] lesion. BALLOON DILATION A Balloon catheter Trek RX 2.5 X 12 was inserted and inflated up to 14.00atm for 13seconds. STENT DEPLOYMENT A drug-eluting stent Raymond RX Stent 2.5X22mm was inserted and inflated up to 12.00atm for 7seconds. Final angiography reveals 0 % stenosis with JASWINDER 3 flow. BALLOON DILATION A Balloon catheter NC Euphora 2.75x12 was inserted and inflated up to 18.00atm for 15seconds. Additional Inflation: 20.00atm for 10seconds. Additional Inflation: 20.00atm for 11seconds. PCI Technique Lesion 2 Percutaneous Coronary Intervention was performed on the distal circumflex artery segment. The lesion stenosis prior to intervention was 90% with JASWINDER 3 flow. A 6FR XB 3.0 100CM Guide Catheter was used to engage the ostium. A BMW 190cm Interventional Guidewire was used to cross the lesion. Balloon Dilation A Balloon catheter Mini Trek RX 2.0 X 15 was inserted and inflated up to 12.00atm for 11seconds. Additional Inflation: 14.00atm for 12seconds. Stent Deployment A drug-eluting stent [place] RX Stent 2.0X22mm was inserted and inflated up to 14.00atm for 7seconds. Additional Inflation: 15.00atm for 11seconds. Final angiography reveals 10 % stenosis with JASWINDER 3 flow. PCI Technique Lesion 3 Percutaneous Coronary Intervention was performed on the proximal circumflex artery segment. The lesion stenosis prior to intervention was 80% with JASWINDER 3 flow. Stent Deployment A drug-eluting stent [place] RX Stent 3.0X8mm was inserted and inflated up to 14.00atm for 14seconds. Additional Inflation: 18.00atm for 9seconds. Additional Inflation: 18.00atm for 11seconds. [address] [place] [address] CARDIAC CATH REPORT Name: TRI MORSE Room: [address] Mendel M.R.#: [id number] Admission: 03/08/18 Attend Phys: Guru Dominguez Discharge: Date of : 69 Report #: [id number] Final angiography reveals 0 % stenosis with JASWINDER 3 flow. Conclusion #1 significant coronary artery disease characterized by the following: A 40% proximal LAD narrowing with 90% mid LAD in-stent restenosis and 70% diffuse distal LAD narrowing B prominent though nondominant circumflex with 80% focal proximal stenosis and 90% tubular distal stenosis C dominant right coronary artery with widely patent proximal and distal stents and 30% narrowing at the acute margin #2 moderate systemic systolic hypertension #3 successful percutaneous coronary intervention with deployment of a drug-eluting stent at the site of 90% mid LAD in-stent restenosis with 0% residual narrowing #4 successful percutaneous coronary intervention with deployment of sequential drug-eluting stents at the sites of 80% focal proximal and 90% tubular distal circumflex stenosis with 0 and 10% residual narrowing following stent deployment and JASWINDER-3 flow to the distal vessel Recommendations Cardiac Risk Reduction Program Aggressive Medical Therapy Medications Administered Aspirin (any) Ticagrelor Diagnostic Cath Approved by: Travis Bullock MD Date/Time: 03/09/2018 11:40:13 <ELECTRONICALLY SIGNED> By: Travis Bullock MD, FACC 03/09/18 1140 1140 1140Travis Bullock MD, FACC /INF
--- NOTE | 2018-03-09 11:47 | CON ---
[address] [address] CONSULTATION Name: TRI MORSE Room: [address] Neema#: [id number] Admission: 03/08/18 Attend Phys: Guru Dominguez Discharge: Date of : 69 Report #: [id number] THIS REPORT FOR: //name// CC: NANO physician/PCP Jamaal Kelly DATE OF SERVICE: 03/08/2018 CARDIOLOGY CONSULTATION HISTORY OF PRESENT ILLNESS: The patient is a 52-year-old female, with aggressive coronary artery disease, who presented slightly greater than 4 weeks ago with acute inferior infarction interrupted by stenting of the right coronary artery with 2 drug-eluting stents deployed. She was noted to have significant mid LAD and mid and circumflex stenosis noted at that time, which were not approached in the acute setting. She presented to the ER today with recurrent chest heaviness with some radiation to the arm. The pain remitted during her evaluation there and has not recurred. The symptoms are suggestive of her prior ischemic syndrome. Risk factors for coronary artery disease include diabetes, hypertension and hypercholesterolemia. MEDICATIONS: Have included atorvastatin, p.r.n. nitroglycerin, metoprolol, ticagrelor, and aspirin. SOCIAL HISTORY: Remarkable for significant, but poorly quantitated cigarette smoking. PHYSICAL EXAMINATION: GENERAL: Reveals a mildly distressed, overweight middle-aged female. VITAL SIGNS: Blood pressure 140/70, pulse rate 68, respirations 18 per minute. NECK: Jugular venous pressure is normal. CHEST: Clear. CARDIOVASCULAR: Reveals normal first and second heart sounds with a question of S4 gallop. ABDOMEN: Obese. EXTREMITIES: Without edema with intact 1-2+ femoral pulses with local ulceration inn the distal portions of the right lower extremity. IMPRESSION: 1. Acute coronary syndrome with unstable angina. 2. Status post recent inferior wall myocardial infarction. 3. Type 2 diabetes. 4. [place] [address] CONSULTATION Name: TRI MORSE Room: [address]#: [id number] Admission: 03/08/18 Attend Phys: Guru Dominguez Discharge: Date of : 69 Report #: [id number] 5. Hypertension. 6. Tobacco habituation. RECOMMENDATIONS: Given the aforementioned clinical scenario, I would recommend urgent catheterization with strong consideration of intervention contingent on the results of the study. This has been discussed with the patient and family. Critical care time is 35 minutes from 1320 to 1355 on 03/08/2018. <ELECTRONICALLY SIGNED> By: Travis Bullock MD, FACC 03/09/18 1147 1356 [id number] Bullock MD, FACC /nt
--- NOTE | 2018-03-09 12:41 | EKG ---
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 : 1965 Requested By: Travis Bullock Order Number: [id number] Reading MD: Brian Baez Measurements Intervals [place] Rate: 60 P: 72 IN: 184 QRS: -6 QRSD: 91 T: -19 QT: 450 QTc: 450 Interpretive Statements Sinus rhythm Inferior infarct, age indeterminate Minimal ST elevation, anterior leads Compared to ECG 03/08/2018 09:47:48 ST (T wave) deviation now present Myocardial infarct finding still present Electronically Signed On 03-09-2018 12:41:29 [employer] by Brian Baez [email or web address] <ELECTRONICALLY SIGNED> By: Brian Baez MD, FAC 03/09/18 1241 1609 1609 Brian Baez MD, FAC /EPI
--- NOTE | 2018-03-09 12:43 | EKG ---
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 : 1965 Requested By: Travis Bullock Order Number: [id number] Reading MD: Brian Baez Measurements Intervals [place] Rate: 69 P: 46 NH: 171 QRS: -11 QRSD: 88 T: -20 QT: 401 QTc: 430 Interpretive Statements Sinus rhythm Consider left atrial enlargement Inferior infarct, age indeterminate Compared to ECG 03/08/2018 09:47:48 No significant changes Electronically Signed On 03-09-2018 12:42:48 [employer] by Brian Baez [email or web address] <ELECTRONICALLY SIGNED> By: Brian Baez MD, FAC 03/09/18 1242 1 1 Brian Baez MD, [facility] /EPI
[2018-03-09] MEDS ORDERED: COLACE100 MG PO (12:58)
--- NOTE | 2018-03-09 13:40 | NUR ---
PT OK FOR DISCHARGE.PAPERWORK COMPLETED AND GIVEN TO PT.SCRIPTS GIVEN WITH EDUCATION.IV REMOVED.HEART MONITOR REMOVED AND RETURNED TO NURSING STATION.ALL PERSONAL BELONGINGS PACKED AND TAKEN WITH PT.PT INFORMED OF FOLLOW UP APPOINTMENTS.COUPON CARD GIVEN TO PT BY CARDIOLOGY FOR SCRIPT.PT WHEELED OUT BY NURSING STAFF TO PERSONAL VEHICLE.
== END 2018-03-09 13:55 | disposition home or self-care (01) ==
LOC: M.ERS 09:43 → M.TBA-ER 11:46 → M.2W 15:59
PROVIDERS: Emergency Medicine; Internal Medicine; ADMIT Internal Medicine
DX: I25.110 Atherosclerotic heart disease of native coronary artery with unstable angina pectoris (principal); E11.9 Type 2 diabetes mellitus without complications; I10 Essential (primary) hypertension; E78.5 Hyperlipidemia, unspecified; E11.22 Type 2 diabetes mellitus with diabetic chronic kidney disease; I12.9 Hypertensive chronic kidney disease with stage 1 through stage 4 chronic kidney disease, or unspecified chronic kidney disease; N18.2 Chronic kidney disease, stage 2 (mild); N17.9 Acute kidney failure, unspecified; F17.210 Nicotine dependence, cigarettes, uncomplicated; S81.809A Unspecified open wound, unspecified lower leg, initial encounter; Z79.4 Long term (current) use of insulin; Z79.82 Long term (current) use of aspirin; Z79.899 Other long term (current) drug therapy; I25.2 Old myocardial infarction; Z95.5 Presence of coronary angioplasty implant and graft; X58.XXXA Exposure to other specified factors, initial encounter; Y93.89 Activity, other specified; Y92.89 Other specified places as the place of occurrence of the external cause

== ENCOUNTER 2018-09-13 09:27 | Inpatient (IN) | payer OTHER ==
[~2018-09-13] VITALS: Ht 162.6 cm; Wt 108.9 kg
[2018-09-13 09:34] VITALS: BP 140/96
[2018-09-13] MEDS ORDERED: PLAVIX 75 MG TA75 M1 PO (09:37)
[2018-09-13 09:52] LABS: ABSOLUTE EOSINOPHILS 0.3 thou/uL (0.0-0.7); ABSOLUTE LYMPHOCYTES 1.5 thou/uL (0.8-5.3); ABSOLUTE MONOCYTES 0.4 thou/uL (0.0-1.2); ABSOLUTE NEUTROPHILS 3.9 thou/uL (1.6-8.1); BASOPHILS 0.4 %; EOSINOPHILS 4.9 %; HEMATOCRIT 41.5 % (37.0-47.0); HEMOGLOBIN 13.5 gm/dL (12.0-15.0); LYMPHOCYTES 24.8 %; MCH 31.3 pg (26.0-34.0); MCHC 32.4 g/dL (28.0-37.0); MCV 96.4 fL (80.0-100.0); MPV 8.1 fl. (7.2-11.1); NUCLEATED RBCS 0 /100WBC; PLATELET COUNT* 238 thou/uL (150-400); POLYS 63.9 %; RBC 4.31 mil/uL (4.20-5.00); RDW-CV 15.3 % (10.5-14.5); WBC 6.1 thou/uL (4.0-11.0)
[2018-09-13 10:05] LABS: APTT 26.1 Seconds (25.0-31.3); INR 1.1; PROTIME 11.2 Seconds (9.20-11.50)
[2018-09-13 10:06] LABS: CALCIUM 9.3 mg/dL (8.5-10.1); CREATININE 1.2 mg/dL (0.6-1.3); POTASSIUM 3.1 mmol/L (3.5-5.1)
[2018-09-13 10:16] LABS: ALBUMIN 2.8 g/dL (3.4-5.0); TOTAL BILIRUBIN 0.3 mg/dL (<0.1-1.0); TOTAL PROTEIN 6.7 g/dL (6.4-8.2); TROPONIN-I LEVEL 0.06 ng/mL (<0.06)
[2018-09-13 13:00] VITALS: BP 164/92
[2018-09-13 13:02] VITALS: BP 165/118
--- NOTE | 2018-09-13 15:57 | 2DMMODE ---
[place] [address] 2 D/M-MODE ECHOCARDIOGRAM Name: HADLEY MORSEA NOA Room: [address] IN [facility]#: [id number] Admission: 09/13/18 Attend Phys: Una Carlin, Discharge: Date of : 69 Date of Service: 09/13/18 1556 Report #: [id number] THIS REPORT FOR: //name// APPROVED REPORT Study performed: 09/13/2018 13:33:09 EXAM: Comprehensive 2D, Doppler, and color-flow Echocardiogram Patient Location: In-Patient Room #: 219 Status: routine BSA: 2.11 HR: 96 bpm BP: 165/118 mmHg Rhythm: NSR Other Information Study Quality: Good Indications Dyspnea 2D Dimensions IVSd: 14.25 (7-11mm) LVOT Diam: 20.50 (18-24mm) LVDd: 45.62 mm PWd: 11.58 (7-11mm) Ascending Ao: 31.72 (22-36mm) LVDs: 39.55 (25-40mm) Aortic Root: 29.12 mm Volumes Left Atrial Volume (Systole) LA ESV Index: 49.10 mL/m2 Aortic Valve AoV Peak Jaziel.: 1.25 m/s AO Peak Gr.: 6.22 mmHg LVOT Max P.76 mmHg AO Mean Gr.: 3.06 mmHg LVOT Mean P.14 mmHg LVOT Max V: 0.83 m/s AO V2 VTI: 14.18 cm LVOT Mean V: 0.48 m/s DC (VTI): 2.42 cm2 LVOT V1 VTI: 10.42 cm Mitral Valve E/A Ratio: 2.41 MV Decel. Time: 150.18 ms MV E Max Jaziel.: 0.95 m/[place] [address] 2 D/M-MODE ECHOCARDIOGRAM Name: MORSETRI Room: [address] IN .R.#: [id number] Admission: 09/13/18 Attend Phys: Una Carlin, Discharge: Date of : 69 Date of Service: 09/13/18 1556 Report #: [id number] MV PHT: 43.55 ms MVA (PHT): 5.05 cm2 TDI E/Lateral E': 10.56 E/Medial E': 13.57 Medial E' Jaziel.: 0.07 m/s Lateral E' Jaziel.: 0.09 m/s Pulmonary Valve PV Peak Jaziel.: 0.69 m/s PV Peak Gr.: 1.92 mmHg Tricuspid Valve RAP Estimate: 5.00 mmHg TR Peak Gr.: 36.75 mmHg RVSP: 41.00 mmHg PA Pressure: 41.00 mmHg Left Ventricle The left ventricle is normal size. There is severe global hypokinesis of the left ventricle. Mild concentric left ventricular hypertrophy. Left ventricular systolic function is severely decreased. LVEF is 30-35%. Severe diastolic dysfunction is present (restrictive filling). Right Ventricle The right ventricle is normal size. The right ventricular systolic function is normal. Atria Left atrium is moderately dilated. Right atrium is mildly dilated. Aortic Valve The aortic valve is normal in structure. No aortic regurgitation is present. There is no aortic valvular stenosis. Mitral Valve The mitral valve is normal in structure. Mild mitral regurgitation. No evidence of mitral valve stenosis. Tricuspid Valve The tricuspid valve is normal in structure. Mild tricuspid regurgitation. Moderate pulmonary hypertension. The RVSP is 50-55 mmHg. Pulmonic Valve The pulmonary valve is normal in structure. [place] [address] 2 D/M-MODE ECHOCARDIOGRAM Name: TRI MROSE Room: [address] IN [facility]#: [id number] Admission: 09/13/18 Attend Phys: Una Carlin, Discharge: Date of : 69 Date of Service: 09/13/18 1556 Report #: [id number] valvular regurgitation. Great Vessels The aortic root is normal in size. IVC is normal in size and collapses >50% with inspiration. Pericardium There is no pericardial effusion. <Conclusion> The left ventricle is normal size. Mild concentric left ventricular hypertrophy. Left ventricular systolic function is severely decreased. LVEF is 30-35%. Severe diastolic dysfunction is present (restrictive filling). There is severe global hypokinesis of the left ventricle. Left atrium is moderately dilated. Right atrium is mildly dilated. Mild mitral regurgitation. Mild tricuspid regurgitation. Moderate pulmonary hypertension. The RVSP is 50-55 mmHg. <ELECTRONICALLY SIGNED> By: Bernardo Lawrence MD, FACC 09/13/18 1556 1556 1556 Bernardo Lawrence MD, FACC /INF
--- NOTE | 2018-09-13 16:10 | NUR ---
VSS, ASSUMED CARE OF PT FROM ER, ASSESSMENT PERFORMED AND CHARTED, FALL PRECAUTIONS IN PLACE AND CALL LIGHT IN REACH, PT IS A&O4 AND ON RA, AND STATES PAIN IN HER RIGHT LEG, PT GOAL IS TO LOWER PAIN, PT HAVE WOUNDS ON RIGHT LEG, PICTURS TAKEN, PT IS TRACING SR WITH PVC ON THE MONITOR, SHE IS UP STAND BY ASSIST, WILL FOLLOW WITH PLAN OF CARE AND HOURLY ROUNDS.
[2018-09-13 16:15] VITALS: BP 149/101
--- NOTE | 2018-09-13 16:46 | EKG ---
[place] [address] ELECTROCARDIOGRAM REPORT Name: LAURYN MORSECLEMENTINE FAYE Room: [address] IN [facility].#: [id number] Admission: 09/13/18 Attend Phys: Una Carlin MD Discharge: Date of : 69 Report #: [id number] THIS REPORT FOR: //name// [facility] ED Test Date: 2018-09-13 Test Time: 09:38:00 Pat Name: TRI MORSE Department: Room: 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: [facility] : 1965 Requested By: Brent Villanueva Order Number: [id number] MD: Travis Bullock Measurements Intervals [place] Rate: 88 P: 9 NH: 188 QRS: -1 QRSD: 81 T: 73 QT: 416 QTc: 504 Interpretive Statements Sinus rhythm Probable left atrial enlargement Consider inferior infarct Prolonged QT interval Baseline wander in lead(s) V6 Compared to ECG 03/09/2018 08:12:41 Prolonged QT interval now present Myocardial infarct finding still present Electronically Signed On 09-13-2018 16:46:03 CDT by Travis Bullock [email or web address] <ELECTRONICALLY SIGNED> By: Travis Bullock MD, [facility] 09/13/18 1646 Travis Bullock MD, [facility] /EPI
[2018-09-14] VITALS: BP 137/96
[2018-09-14 02:06] LABS: GLYCOHEMOGLOBIN (HGB A1C) 9.4 % (4.8-5.6)
[2018-09-14 04:00] VITALS: BP 170/123
[2018-09-14 05:12] LABS: HEMATOCRIT 40.7 % (37.0-47.0); HEMOGLOBIN 13.5 gm/dL (12.0-15.0); MCH 31.9 pg (26.0-34.0); MCHC 33.1 g/dL (28.0-37.0); MCV 96.2 fL (80.0-100.0); MPV 9.2 fl. (7.2-11.1); RBC 4.22 mil/uL (4.20-5.00); RDW-CV 15.6 % (10.5-14.5)
[2018-09-14 05:50] LABS: ALBUMIN 2.5 g/dL (3.4-5.0); ALKALINE PHOSPHATASE 103 U/L (46-116); ANION GAP 4 mmol/L (7-16); BUN 24 mg/dL (7-18); CALCIUM 9.5 mg/dL (8.5-10.1); CHLORIDE 98 mmol/L (98-107); CHOLESTEROL 111 mg/dL (<200); CO2 35 mmol/L (21-32); CREATININE 1.3 mg/dL (0.6-1.3); GLUCOSE 154 mg/dL (70-99); HDL CHOLESTEROL 29 mg/dL (>40); LDL CHOLESTEROL 70 mg/dL (<100); MAGNESIUM 1.3 mg/dL (1.8-2.4); POTASSIUM 3.8 mmol/L (3.5-5.1); SGOT 26 U/L (15-37); SGPT 35 U/L (30-65); SODIUM 137 mmol/L (136-145); TC:HDL 3.8 Ratio (Not establshd); TOTAL BILIRUBIN 0.5 mg/dL (<0.1-1.0); TOTAL PROTEIN 6.4 g/dL (6.4-8.2); TRIGLYCERIDE 61 mg/dL (<150); VLDL 12 mg/dL (<40)
[2018-09-14 05:59] LABS: SERUM ASSESSMENT Clear
[2018-09-14 08:00] VITALS: BP 159/108
[2018-09-14 09:57] LABS: URINE BILIRUBIN NEGATIVE (Negative); URINE BLOOD NEGATIVE (Negative); URINE CLARITY CLEAR; URINE COLOR YELLOW; URINE GLUCOSE-RANDOM NEGATIVE (Negative); URINE KETONES NEGATIVE (Negative); URINE LEUKOCYTES-REFLEX NEGATIVE (Negative); URINE NITRITE-REFLEX NEGATIVE (Negative); URINE PROTEIN NEGATIVE (Negative); URINE UROBILINOGEN 0.2 E.U./dl (0.2-1.0)
[2018-09-14 13:43] VITALS: BP 129/87
--- NOTE | 2018-09-14 16:25 | NUR ---
ASSUMED PT CARE AT 0800, AOX4, UP AD SHARON. O2 SAT 90'S RA. TRACING SR ON TELE. PT DENIES PAIN. WOUND NOTED ON THE R LOWER LEG AND FOOT. WOUND C/D/I. ANTIBIOTIC GOING. VSS, AM ASSESSMENT CHARTED, MEDS GIVEN PER MAR. CALL LIGHT WITHIN REACH. WILL CONTINUE TO MONITOR.
[2018-09-14 17:38] VITALS: BP 110/76
[2018-09-14 20:00] VITALS: BP 100/73
[2018-09-15 00:38] VITALS: BP 124/89
[2018-09-15 04:00] VITALS: BP 121/84
[2018-09-15 04:41] LABS: CALCIUM 9.1 mg/dL (8.5-10.1); CREATININE 1.2 mg/dL (0.6-1.3); POTASSIUM 3.2 mmol/L (3.5-5.1)
[2018-09-15 08:35] VITALS: BP 139/98
[2018-09-15 12:36] VITALS: BP 143/99
[2018-09-15 16:49] VITALS: BP 122/90
[2018-09-15 18:32] LABS: AMP/METHAMP POSITIVE (Negative); BARBITURATES Negative (Negative); BENZODIAZEPINES Negative (Negative); COCAINE Negative (Negative); METHADONE Negative (Negative); OPIATES POSITIVE (Negative); PCP Negative (Negative); THC POSITIVE (Negative)
--- NOTE | 2018-09-15 18:35 | NUR ---
PT VSS, DM ULCER WITH NO DRSG ORDERS BUT WOUND CONSULT PLACED. PT TOLERATING BEING UP AD SHARON THIS SHIFT. SR ON THE MONITOR ON RA WITH NO COMPLICATIONS. PT HAD POTASSIUM REPLACED, NICOTINE PATCH ON R UPPER ARM. PT WANTED TO DC, BUT SHE IS NEEDING IV ABX AT THIS TIME. HOURLY ROUNDING MAINTAINED THIS SHIFT. WILL CONTINUE THIS SHIFT
[2018-09-15 20:00] VITALS: BP 122/91
[2018-09-16] VITALS: BP 126/90
--- NOTE | 2018-09-16 03:29 | NUR ---
PT ALERT ORIETNED. UP AD SHARON. PAIN MEDICATION AND BENADRYL GIVEN FOR SLEEP HS. TELEMETRY SHOWS SR. SLEEPING AT BS.
[2018-09-16 04:00] VITALS: BP 133/91
[2018-09-16 05:32] LABS: HEMATOCRIT 39.8 % (37.0-47.0); MCH 31.5 pg (26.0-34.0); MCHC 32.6 g/dL (28.0-37.0); MCV 96.9 fL (80.0-100.0); RBC 4.11 mil/uL (4.20-5.00); RDW-CV 16.4 % (10.5-14.5); WBC 5.9 thou/uL (4.0-11.0)
[2018-09-16 05:48] LABS: CALCIUM 9.5 mg/dL (8.5-10.1); CREATININE 1.2 mg/dL (0.6-1.3); MAGNESIUM 1.7 mg/dL (1.8-2.4); POTASSIUM 3.9 mmol/L (3.5-5.1)
--- NOTE | 2018-09-16 07:26 | CON ---
[address] [address] CONSULTATION Name: TRI MORSE Room: [address] M.R.#: [id number] Admission: 09/13/18 Attend Phys: Una Carlin MD Discharge: Date of : 69 Report #: [id number] THIS REPORT FOR: //name// CC: [facility] physician/PCP Una Carlin DATE OF SERVICE: 09/13/2018 INFECTIOUS DISEASE CONSULTATION ATTENDING PHYSICIAN: Una Carlin MD REASON FOR EVALUATION: Suspected infected ulcer, right lower extremity in the setting of diabetes mellitus. HISTORY OF PRESENT ILLNESS: Chart reviewed, patient examined. This is a 53-year-old woman with diabetes mellitus she dates back to age 32 ____ she describes it as never taking insulin, who has a longstanding wound over the posterior aspect of her mid lateral portion of her right calf. She noted increasing pain associated with it, had had some subjective fevers. She has been quite uncomfortable as a result and she has also had some dyspnea. She describes about 50-pound weight gain, which she cannot really attribute to although she has no lower extremity edema. She states she has been utilizing some topical therapy with Neosporin. On initial evaluation, she had a normal white count and markedly elevated glucose to 352 with a creatinine of 1.2. Chest x-ray showed no acute process. Lactic acid was borderline elevated at 2.2, repeat was 1.5. She has not been febrile. Medicines include Zosyn. Given a dose of vancomycin as well. ALLERGIES: None known. CURRENT MEDICATIONS: Clopidogrel, aspirin, atorvastatin, amlodipine, famotidine, vancomycin, Zosyn, carvedilol, glipizide, metformin, p.r.n. analgesics, furosemide, tramadol. 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 SOCIAL HISTORY: Smokes half pack a day of cigarettes for last 20 years. Marijuana. No ethanol. FAMILY HISTORY: Noncontributory. REVIEW OF SYSTEMS: As above. Denies significant nausea, diarrhea, occasionally has constipation, otherwise unremarkable 10-[place] [address] CONSULTATION Name: TRI MORSE Room: [address]#: [id number] Admission: 09/13/18 Attend Phys: Una Carlin MD Discharge: Date of : 69 Report #: [id number] PHYSICAL EXAMINATION: GENERAL: Moderate to marked distress secondary to the leg pain. She is chronically ill, undernourished. VITAL SIGNS: Temperature 97.2, pulse 93, respirations 19, and blood pressure 165/118. SKIN: Warm, dry. HEENT: Normocephalic. Extraocular muscles intact. NECK: Supple. LUNGS: Diminished, otherwise clear breath sounds. HEART: Regular. Borderline tachycardic. I do not appreciate a murmur. ABDOMEN: Soft, nontender, and nondistended. EXTREMITIES: Posterior aspect of the right calf was inspected. There is ulceration with moderate surface inflammation signs, exquisitely tender to touch. No evidence of purulence. GENITOURINARY AND RECTAL: Deferred. LABORATORY DATA: TSH 1.584, free T4 of 1.26. Serial lactic acid 2.2 and 1.5. Troponin less than 0.06. Plain film of the leg shows no evidence of bony changes, which suggest deep infection. Chest x-ray was otherwise unremarkable, mild cardiomegaly. Electrolytes: Sodium 136, potassium 3.1, chloride 95, bicarbonate is 36, anion gap of 5, BUN and creatinine 19 and 1.2. LFTs unremarkable. Albumin of 2.8, total protein 6.7. Estimated GFR 47. CBC: White count of 6.1, H and H 13.5 and 41.5, platelets 238. ASSESSMENT AND PLAN: Chronic ulceration involving the right posterior mid calf. The patient with longstanding diabetes. Certainly, I suspect component of infection, we will continue empiric therapy. A culture has been collected. We will do arterial Doppler studies, cannot entirely exclude ischemic component at this point. ____ urgent need to do any debridement since there is any fluctuance or subcutaneous fluid collection. Continue wound care as prescribed, elevation and at some point barring unremarkable arterial Doppler, consider compression. <ELECTRONICALLY SIGNED> By: Jag Woodson MD 09/16/18 0726 1456 [id number] Woodson MD /nt
[2018-09-16 07:30] VITALS: BP 132/94
[2018-09-16] MEDS ORDERED: TRAMADOL 50 MG50 MG PO (10:27)
[2018-09-16] MEDS ORDERED: KLOR-CON M2020 MEQ PO (10:27)
[2018-09-16] MEDS ORDERED: COREG25 MG PO (10:27)
[2018-09-16] MEDS ORDERED: PRINIVIL20 MG PO (10:27)
[2018-09-16] MEDS ORDERED: LASIX 40 MG TAB40 M1 PO (10:27)
--- NOTE | 2018-09-16 10:47 | NUR ---
VSS, ASSUMED CARE IN THE AM, ASSESSMENT PERFORMED AND CHARTED, PT A&O4, ON RA AND IS TRACING SR ON THE MONITOR, PT STATES SOME PAIN IN RIGHT LEG, SHE IS UP AD SHARON, HAS FAMILY AT THE BEDSIDE,, HER GOAL IS TO MEET WITH WOUND NURSE FOR WOUND CARE INSTRUCTIONS, AND THEN DISCHARGE TO HOME, WILL FOLLOW WITH PLAN OF CARE,
[2018-09-16 11:57] VITALS: BP 146/101
--- NOTE | 2018-09-16 13:18 | NUR ---
Pt is A&O. Resides at home with her boyfriend. Independent. No DME. No hx of HH or SNF. Pt discharging to home today. Pt does not have insurance, case management vouched for Pt's prescriptions. Scripts and signed rx assistance form faxed to [facility] train planner confirmed receipt. VISH informed Pt that she will need to berry picker her scripts from [facility] on in [place].
--- NOTE | 2018-09-16 13:44 | NUR ---
WOUND NURSE: PATIENT SEEN TO ADDRESS W DIABETIC WOUNDS ONE ON THE RIGHT DISTAL-LATERAL LOWER LEG MEASURING 8.0 X 6.5 X 0.2 CM AND PRESENTS WITH APPROXIMATELY 50% RED GRANULATION TISSUE AND 50% YELLOW SLOUGH AND NECROTIC TISSUE. THERE IS A SMALL AMOUNT OF YELLOW DRAINAGE NOTED ON THE OLD DRESSING, NO ACTIVE DRAINAGE IDENTIFIED. EXTREMITY IS COOL TO TOUCVH, BUT PALPABLE PEDAL PULSES AND CAPILLARY REFILL <3 SECONDS. WOUNDS ARE PAINFUL TO TOUCH. CLEANSED WITH SOAP AND WATER, RINSED WITH WATER, THEN PATTED DRY. APPLIED AQUACEL AG UNDER ABD, THEN WRAPPED WITH KERLEX ROLL GAUZE AND SECURED WITH TAPE. A SECOND ULCER IS NOTED ON THE DISTAL RIGHT FOOT AT THE POINT OF THE 5TH METATARSAL AND MEASURES 1.5 X 0.5 X 0.4 CM. THE LESION PRESENTS WITH 40 TO 50% RED, GRANULATION TISSUE AND 50 TO 60% SLOUGH. THERE IS A SMALL AMOUNT OF YELLOW DRAINAGE ON THE OLD DRESSING. THIS WOUND WAS TREATED THE SAME THE LATERAL LEG WOUND. PATIENT REPORTING THAT SHE HAS HAD THESE ULCERS FOR A YEAR AND HAS BEEN TRYING TO MANAGE THEM HERSELF. EXPLAINED THE POTENTIAL SEROUSNESS OF THESE LESIONS AND RECOMMENDED SHE [place] [facility] [place]COME AND NO HEALTH INSURANCE. PATIENT AGREES TO THIS. PATIENT ALSO INSTRUCTED ON REPORTABLE SIGNS AND SYMPTOMS AND ON MEASURES TO PROMOTE HEALING AND PREVENT FURTHER COMPLICATIONS.
[2018-09-16] MEDS ORDERED: COLACE100 MG PO (14:31)
[2018-09-16] MEDS ORDERED: CIPRO500 MG PO (14:43)
[2018-09-16] MEDS ORDERED: MINOCIN50 MG PO (14:43)
[2018-09-16 16:06] VITALS: BP 140/92
--- NOTE | 2018-09-16 16:26 | NUR ---
VSS, I HAVE RECEIEVED AND FILLED OUT DISCHARGE ORDERS, TOOK OUT IV AND TELE MONITOR, PT WAS PROVITED WITH WOUND CLEANING INSTRUCTIONS, WAS GIVEN PERSCRIPTIONS, AND DISCHARGE EDU, PT DENIES ANY QUESTIONS OR CONCERNS AT TIME OF D/C, PT WAS TAKEN OUT VIA WHEEL CHAIR TO CAR WITH STAFF AND SON, HOURLY ROUNDS COMPLETED,
--- NOTE | 2018-09-17 21:30 | CON ---
[address] [address] CONSULTATION Name: TRI MORSE Room: [address] IN M.R.#: [id number] Admission: 09/13/18 Attend Phys: Una Carlin MD Discharge: 09/16/18 Date of : 69 Report #: [id number] THIS REPORT FOR: //name// CC: [facility] physician/PCP Una Carlin INDICATION: History of coronary artery disease and diastolic heart failure. HISTORY OF PRESENT ILLNESS: The patient is a pleasant 53-year-old white female who is well known to myself. She has had previous intervention to the proximal and distal right coronary artery and then in staged fashion the mid LAD and distal circumflex with stent placement in all areas with excellent result. She was on dual antiplatelet therapy at that time with aspirin and Brilinta. Apparently, she has run out of medications. She was admitted to the hospital this time with nonhealing foot and leg ulcers. In this setting, she has some swelling of her feet that is mild. She is not having chest pain or significant shortness of breath. She is without other cardiac complaint. PAST MEDICAL HISTORY: 1. Coronary artery disease with intervention as outlined above. 2. Type 2 diabetes mellitus. 3. Hypertension. 4. Chronic tobacco use. PAST SURGICAL HISTORY: 1. Carotid stent. 2. Cholecystectomy. 3. Tonsillectomy. 4. Coronary artery intervention as outlined above. FAMILY HISTORY: Positive for coronary artery disease. SOCIAL HISTORY: The patient smokes a half a pack of cigarettes daily. She does not drink alcohol. ALLERGIES: None documented. HOME MEDICATIONS: Glipizide 5 mg p.o. b.i.d., metformin 500 mg p.o. b.i.d., Lopressor 25 mg daily, Nitrostat p.r.n., Brilinta 90 mg daily, amlodipine 10 mg daily, aspirin 81 mg daily, atorvastatin 40 mg daily. REVIEW OF SYSTEMS: A 14-point review of systems is positive for diabetes, medical allergies outlined above, depression and anxiety. Otherwise, 14-point review of systems unremarkable. PHYSICAL EXAMINATION: VITAL SIGNS: Blood pressure 165/118, [place] 93. [place] [address] CONSULTATION Name: TRI MORSE Room: [address]#: [id number] Admission: 09/13/18 Attend Phys: Una Carlin MD Discharge: 09/16/18 Date of : 69 Report #: [id number] GENERAL: This is a pleasant lady who is in no distress. HEENT: Extraocular muscles intact. Mucous membranes are moist. NECK: Shows no jugular venous distention. There are no carotid bruits. CHEST: Reveals clear lung osorio. CARDIOVASCULAR: Reveals a regular rhythm without gallop or murmur. ABDOMEN: Reveals normal bowel sounds. EXTREMITIES: Shows trace to 1+ pedal edema. The wounds on the left lower extremity str wrapped. SKIN: Dry. LABORATORY DATA: Evaluated. Troponins are less than 0.06 on 3 separate occasions. NT-proBNP is elevated at 10,352. Chest x-ray shows no acute process. IMPRESSION AND RECOMMENDATIONS: 1. Coronary artery disease, presently stable. Would resume and continue dual antiplatelet therapy. Aspirin and Plavix are fine. 2. Hypertension. Continue home medications as outlined above. Plan on switching from metoprolol to carvedilol for better blood pressure effect. 3. Hyperlipidemia. Continue atorvastatin 40 mg nightly. 4. Tobacco use. Smoking cessation discussed and advised. 5. Diabetic foot ulcers per hospitalist and wound consult. <ELECTRONICALLY SIGNED> By: Bernardo Lawrence MD, FACC 09/17/18 2130 1424 [id number] Hospitaledmar Lawrence MD, FACC /nt
== END 2018-09-16 16:30 | disposition home or self-care (01) | DRG 637 ==
LOC: M.ERS 09:27 → M.TBA-ER 12:09 → M.2W 12:09
PROVIDERS: Family Medicine; Internal Medicine; ADMIT Internal Medicine
DX: E11.621 Type 2 diabetes mellitus with foot ulcer (principal); I50.23 Acute on chronic systolic (congestive) heart failure; L97.919 Non-pressure chronic ulcer of unspecified part of right lower leg with unspecified severity; E11.622 Type 2 diabetes mellitus with other skin ulcer; E78.5 Hyperlipidemia, unspecified; I11.0 Hypertensive heart disease with heart failure; F17.210 Nicotine dependence, cigarettes, uncomplicated; I87.2 Venous insufficiency (chronic) (peripheral); E11.51 Type 2 diabetes mellitus with diabetic peripheral angiopathy without gangrene; I87.8 Other specified disorders of veins; E11.65 Type 2 diabetes mellitus with hyperglycemia; I25.10 Atherosclerotic heart disease of native coronary artery without angina pectoris; Z98.891 History of uterine scar from previous surgery; I25.2 Old myocardial infarction; Z79.4 Long term (current) use of insulin; Z90.49 Acquired absence of other specified parts of digestive tract; Z95.5 Presence of coronary angioplasty implant and graft; Z79.82 Long term (current) use of aspirin; Z82.49 Family history of ischemic heart disease and other diseases of the circulatory system; Z83.3 Family history of diabetes mellitus; Z84.1 Family history of disorders of kidney and ureter; Z80.9 Family history of malignant neoplasm, unspecified; Z91.19 Patient's noncompliance with other medical treatment and regimen

== ENCOUNTER 2018-12-06 08:36 | Inpatient (IN) | payer OTHER ==
[~2018-12-06] VITALS: Ht 162.6 cm; Wt 91.4 kg
[~2018-12-06 08:36] MED LIST changes: +CIPRO500 MG PO; +COLACE100 MG PO; +COREG25 MG PO; +KLOR-CON M2020 MEQ PO; +LASIX 40 MG TAB40 M1 PO; +MINOCIN50 MG PO; +PLAVIX 75 MG TA75 M1 PO; +TRAMADOL 50 MG50 MG PO
[2018-12-06 08:43] VITALS: BP 139/97
[2018-12-06 09:03] LABS: ABSOLUTE BASOPHILS 0.1 thou/uL (0.0-0.2); ABSOLUTE EOSINOPHILS 0.3 thou/uL (0.0-0.7); ABSOLUTE LYMPHOCYTES 2.2 thou/uL (0.8-5.3); ABSOLUTE MONOCYTES 0.5 thou/uL (0.0-1.2); ABSOLUTE NEUTROPHILS 8.3 thou/uL (1.6-8.1); BASOPHILS 0.6 %; EOSINOPHILS 2.3 %; HEMATOCRIT 41.4 % (37.0-47.0); HEMOGLOBIN 13.9 gm/dL (12.0-15.0); LYMPHOCYTES 19.5 %; MCH 31.4 pg (26.0-34.0); MCHC 33.6 g/dL (28.0-37.0); MCV 93.6 fL (80.0-100.0); MONOCYTES 4.8 %; MPV 7.6 fl. (7.2-11.1); NUCLEATED RBCS 0 /100WBC; PLATELET COUNT* 280 thou/uL (150-400); POLYS 72.8 %; RBC 4.43 mil/uL (4.20-5.00); RDW-CV 16.4 % (10.5-14.5); WBC 11.4 thou/uL (4.0-11.0)
[2018-12-06 09:14] LABS: APTT 27.9 Seconds (25.0-31.3); PROTIME 10.1 Seconds (9.20-11.50)
[2018-12-06 09:33] LABS: CALCIUM 10.3 mg/dL (8.5-10.1); POTASSIUM 3.7 mmol/L (3.5-5.1)
[2018-12-06 09:48] LABS: CK-MB MASS 114.6 ng/mL (<0.5-3.6); MAGNESIUM 1.7 mg/dL (1.8-2.4); TOTAL BILIRUBIN 0.3 mg/dL (<0.1-1.0); TOTAL PROTEIN 6.8 g/dL (6.4-8.2)
[2018-12-06 12:21] VITALS: BP 151/108
[2018-12-06 12:27] VITALS: BP 130/90
--- NOTE | 2018-12-06 12:52 | NUR ---
RECEIEVED REPORT FROM ELEUTERIO RN IN ER OF EXPECTED ADMISSION AT 1256- DX: NSTEMI; PULMONARY EDEMA- PT ARRIVED TO ROOM [address] AT 1208, SBA TO BED- RESPIRATORY SUPERVISOR PLACED ORDERED, TRACING ST WITH PVC- PT A&O X4- CONTINENT OF B/B- SBA WITH TRANSFERS FOR SAFETY- DIMINISHED LUNG SOUNDS NOTED, DYSPNEA NOTED- VS 97.5 22 130/90 111 90% ON 4L VIA NC- ABD SOFT/ROUND/NON-TENDER, BS X4 QUADS- LAST BM REPORTED 12/05/18- IV NOTED TO LEFT AC INTACT WITH HEPARIN INFUSSING PRESCIBED- BS NOTED AT 154 AT TIME OF ADMISSION- RLE NOTED WITH DRESSING INTACT, PT REPORTS TO BE DIABETIC ULCER, WN HAS BEEN CONSULTED WITH MESSAGE LEFT INDICATED-PT NOTED WITH 4 OF OWN TEETH, NO DENTURES- PT REPORTS TO BE DAILY PACK A DAY SMOKER- NON-COMPLIANT WITH HOME MEDICATIONS PRESCIBED- PT VIVIAN PAIN, STATES DISCOMFORT WITH TROUBLE BREATHING AT TIMES- CALL LIGHT AND PERSONAL BELONGINGS WITH IN REACH- PT MAKES NEEDS KNOWN- ALL NEEDS MET AT THIS TIME-WCTM
--- NOTE | 2018-12-06 13:19 | NUR ---
WOUND CARE NOTE: CONSULT RECEIVED FOR RIGHT LEG DIABETIC ULCER. PATIENT PRESENTS WITH A FULL THICKNESS ULCERATION TO THE POSTERIOR ASPECT OF HER RIGHT LEG, NEAR THE ACHILLES AREA. WOUND MEASURES 5X1.3X0.1. MOIST, YELLOW ADHERENT SLOUGH COVERS THE ENTIRE WOUND BED. RAMESH-WOUND WITH NEW EPITHELIUM, APPEARS TO BE HEALING WELL. PATIENT USURE OF ETIOLOGY, STATES IT JUST HAPPENED. DRAINING SMALL AMOUNTS OF SEROUS DRAINAGE. PATIENT STATES SHE APPLIES NEOSPORIN TO SITE. CLEANSED WOUND WITH WOUND CLEANSER, PATTED DRY. APPLIED OPTIFOAM AG AND SECURED WITH ROLL GAUZE. PATIENT TOLERATED DRESSING CHANGE WELL. EDUCATED PATIENT ON DRESSING SELECTION, COMMUNICATED UNDERSTANDING. RECOMMEND TIGHT BLOOD GLUCOSE CONTROL ENCOURAGE GOOD NUTRTION/HYDRATION FOR WOUND HEALING Q3 DAY DRESSING CHANGE
[2018-12-06 15:58] VITALS: BP 146/101
[2018-12-07 00:45] VITALS: BP 148/97
--- NOTE | 2018-12-07 03:52 | NUR ---
ASSUMED CARE OF PT AT 1900. PT IS ALERT AND ORIENTED. VSS. PERRLA. NO COMPLAINTS OF PAIN. PT IS VERY LETHARGIC. PT HAS A WOUND ON HIS RIGHT LOWER LEG. PT IS ON 6 LITERS O2. PT IS IN SINUS RYTHM WITH A 1ST DEGREE BLOCK. PT IS SLEEPING QUIETLY INBED. RESPIRATIONS ARE EVEN AND NONLABORED. WILL CONTIUE TO MONITOR PT.
[2018-12-07 03:56] VITALS: BP 130/94
--- NOTE | 2018-12-07 04:23 | NUR ---
PTT IS 62.3. NO BOLUS GIVEN. HEPARIN REMAINS AT 1182UNITS. NO CHANGES.
[2018-12-07 08:01] VITALS: BP 130/97
--- NOTE | 2018-12-07 09:22 | NUR ---
ASSUMED CARE OF PT THIS AM AROUND 07- POUNDMASTER IN PLACE ORDERED, TRACING ST/PVC- UPON ASSESSMENT PT NOTED TO BE RESTING IN BED- PT A&O X4, DROWSY-CONTINENT OF B/B- SBA WITH TRANSFERS FOR SAFETY- LCTA/DIMINISHED IN BASES- DYSPNEA NOTED- NON-PRODUCTIVE COUGH NOTED-VSS, O2 SAT 94% ON 6L VIA NC- ABD SOFT/ROUND/NON-TENDER, BS X4 QUADS- LAST BM REPORTED 12/06/18- FAIR PO INTAKE NOTED THIS AM WITH BREAKFAST- IV NOTED TO LEFT AC INTACT, HEPARIN INFUSSING PRESCIBED- NEXT APTT DRAW SCHEDUELD FOR AM 12/08/18- DRESSING NOTED TO RLE C/D/I, NO NEED TO CHANGE AT THIS TIME- DENIES ANY C/O PAIN/DISCOMFORT AT THIS TIME- CALL LIGHT AND PERSONAL BELONGINGS WITH IN REACH- ALL NEEDS MET AT THIS TIME-WCTM
[2018-12-07 09:37] LABS: URINE BILIRUBIN NEGATIVE (Negative); URINE BLOOD NEGATIVE (Negative); URINE CLARITY CLEAR; URINE COLOR YELLOW; URINE GLUCOSE-RANDOM TRACE (Negative); URINE KETONES TRACE (Negative); URINE LEUKOCYTES-REFLEX NEGATIVE (Negative); URINE NITRITE-REFLEX NEGATIVE (Negative); URINE PROTEIN TRACE (Negative); URINE SPECIFIC GRAVITY >= 1.030 (1.005-1.030); URINE UROBILINOGEN 0.2 E.U./dl (0.2-1.0)
[2018-12-07 09:44] LABS: AMP/METHAMP POSITIVE (Negative); BARBITURATES Negative (Negative); BENZODIAZEPINES Negative (Negative); COCAINE Negative (Negative); METHADONE Negative (Negative); OPIATES Negative (Negative); PCP Negative (Negative); THC POSITIVE (Negative)
--- NOTE | 2018-12-07 11:32 | CON ---
[address] [address] CONSULTATION Name: MORSETRI NOA Room: [address] IN M.R.#: [id number] Admission: 12/06/18 Attend Phys: Guru Dominguez Discharge: Date of : 69 Report #: [id number] THIS REPORT FOR: //name// CC: [facility] physician/PCP Jamaal Kelly DATE OF SERVICE: 12/06/2018 HISTORY OF PRESENT ILLNESS: The patient is a 53-year-old female with aggressive premature coronary artery disease. She has underlying hypertension, diabetes, tobacco use, and hyperlipoproteinemia. In February of this year, she presented with acute coronary syndrome and underwent stenting of the mid LAD and proximal and distal circumflex with prior stenting of the right coronary artery. Yesterday, she experienced chest discomfort off and on throughout the day and last night and became dyspneic last evening. She sought assistance in the [facility] Emergency Room today for her shortness of breath. Troponin was elevated at 18 and chest radiograph suggested interstitial pulmonary edema with an elevated NT-BNP of 14,390. At present, her pain is essentially subsided, but she has persistent shortness of breath. MEDICATIONS: Previously prescribed medications have included amlodipine, aspirin, atorvastatin, glipizide, metformin, Lopressor, and ticagrelor. PAST MEDICAL HISTORY: Remarkable for the aforementioned risk factors of diabetes with accompanying lower extremity foot ulceration, hypertension, hyperlipidemia, and weight excess. SOCIAL HISTORY: The patient is a continued cigarette smoker. PHYSICAL EXAMINATION: GENERAL: Demonstrates a moderately distressed middle-aged female. VITAL SIGNS: Blood pressure is 140/70, pulse rate is 74, respirations are 18 per minute. NECK: Jugular venous pressure is normal. CHEST: Reveals scattered rales. CARDIAC: Reveals normal first and second heart sounds, soft systolic murmur, and a question of S4 gallop. ABDOMEN: Extremely obese. EXTREMITIES: Reveal intact femoral and pedal pulses. Radial pulses being 1+. [place] [address] CONSULTATION Name: HADLEY MORSERush FAYE Room: [address] IN [facility].#: [id number] Admission: 12/06/18 Attend Phys: Guru Dominguez Discharge: Date of : 69 Report #: [id number] LABORATORY DATA: Electrocardiogram reveals inferior wall infarction of indeterminate age and nonspecific ST-T alterations are noted. Troponin is elevated at 19.17. NT-BNP is 14,390. Sodium 139, potassium 3.7, BUN 15, creatinine 1.0, and glucose 210 mg percent. Chest radiograph reveals interstitial pulmonary edema, which is bilateral. IMPRESSION: 1. Acute coronary syndrome with evidence for non-ST segment elevation myocardial infarction. 2. Congestive heart failure in the context of #1. 3. Ischemic cardiomyopathy. 4. Type 2 diabetes. 5. Hypercholesterolemia. 6. Exogenous obesity. 7. Tobacco abuse. RECOMMENDATIONS: 1. Parenteral diuresis. 2. Aspirin and heparinization. 3. We would plan cardiac catheterization once her hemodynamic status and respiratory status have improved. This was discussed with the patient. Thank you for allowing us to see to see this patient in cardiovascular assessment. Critical care time is 35 minutes from 1015 to 1050 on 12/06/2018. <ELECTRONICALLY SIGNED> By: Travis Bullock MD, FACC 12/07/18 1132 1050 [id number] Bullock MD, FACC /nt
[2018-12-07 12:13] VITALS: BP 100/68
--- NOTE | 2018-12-07 14:21 | EKG ---
[place] [address] ELECTROCARDIOGRAM REPORT Name: LITOTRIE Room: [address] ADM IN ..#: [id number] Admission: 12/06/18 Attend Phys: Guru Dominguez Discharge: Date of : 69 Report #: [id number] THIS REPORT FOR: //name// [facility] ED Test Date: 2018-12-06 Test Time: 08:44:08 Pat Name: TRI MORSE Department: Room: [facility] Gender: F Web Operations Manager: MEL : [id number] Requested By: Brent Villanueva Order Number: [id number] MD: John Guzmán Measurements Intervals [place] Rate: 104 P: 60 ME: 195 QRS: -7 QRSD: 85 T: 71 QT: 318 QTc: 419 Interpretive Statements Sinus tachycardia Multiple ventricular premature complexes Left atrial enlargement Low voltage, precordial leads Nonspecific T abnormalities, lateral leads Compared to ECG 09/13/2018 09:38:00 Ventricular premature complex(es) now present Low QRS voltage now present T-wave abnormality now present Sinus rhythm no longer present Myocardial infarct finding no longer present Prolonged QT interval no longer present Electronically Signed On 12-07-2018 14:21:04 CDT by John Guzmán [email or web address] <ELECTRONICALLY SIGNED> By: Arabella Guzmán MD, [facility] 12/07/18 1421 3 0844 Arabella Guzmán MD, [facility] /EPI
--- NOTE | 2018-12-07 16:06 | NUR ---
PT YOMI RESTING IN BED, BOYFRIEND AT SIDE VISITING-DROWSINESS CONTINUES THSOUGHOUT THIS SHIFT- TOOL PROGRAMMER IN PLACE ORDERED, TRACING SR WITH PVC- IV NOTED TO LEFT AC INTACT, IV HEPARIN INFUSSING PRESCRIBED- UA ORDERED AND COLLECTED INDICATED, RESULTS NOTED IN MEDITECH- MG REPLACED PER PROTOCOL THIS SHIFT WITH REDRAW TO FOLLOW- ECHO ORDERED AND CATH PLANNED TO Sunday12/09/18- FAIR PO INTAKE NOTED THIS SHIFT WITH MEALS, BS MONITORED ORDERED AND CONTROLLED PER ORAL MEDICATIONS- PT MAKES NEEDS KNOWN- ALL NEEDS MET AT THIS TIME-WCTM
[2018-12-07 16:34] VITALS: BP 108/73
[2018-12-07 19:54] VITALS: BP 101/74
[2018-12-08] VITALS: BP 96/70
[2018-12-08 04:00] VITALS: BP 93/60
[2018-12-08 05:12] LABS: HEMATOCRIT 38.3 % (37.0-47.0); HEMOGLOBIN 12.6 gm/dL (12.0-15.0); MCH 30.9 pg (26.0-34.0); MCV 93.6 fL (80.0-100.0); MPV 8.1 fl. (7.2-11.1); RBC 4.09 mil/uL (4.20-5.00); RDW-CV 16.6 % (10.5-14.5); WBC 7.9 thou/uL (4.0-11.0)
[2018-12-08 05:33] LABS: ALBUMIN 2.4 g/dL (3.4-5.0); CALCIUM 10.2 mg/dL (8.5-10.1); POTASSIUM 3.9 mmol/L (3.5-5.1); TOTAL BILIRUBIN 0.6 mg/dL (<0.1-1.0); TOTAL PROTEIN 6.6 g/dL (6.4-8.2)
--- NOTE | 2018-12-08 07:14 | NUR ---
Pt appeared to be sleeping for most of shift. Oriented and appropriate when queried. S.O. at bedside overnight. No complaints. Heparin gtt infusing. VSS. Will continue to monitor.
[2018-12-08 07:25] VITALS: BP 90/66
--- NOTE | 2018-12-08 08:42 | NUR ---
ASSUMED CARE OF PT THIS AM AROUND 0715- MICROSOFT INFRASTRUCTURE CONSULTANT IN PLACE ORDERED, TRACING SR- UPON ASSESSMENT PT NOTED TO BE RESTING IN BED, BOYFRIEND AT SIDE- PT A&O X4- CONTINENT OF BOWEL AND BLADDER- SBA WITH TRANSFERS FOR SAFETY- LCTA, DIMINISHED IN BASES- RESP EVEN AND UN-LABORED- DYSPNEA NOTED ON EXERTION- BP NOTED TO BE LOW AT 90/66, BLOOD PRESSURE MEDICAITONS HELD THIS AM- O2 SAT 97% ON 2L VIA NC- ABD SOFT/ROUND/NON-TENDER, BS X4 QUADS- LAST BM REPORTED 01/07/19- IV NOTED TO LEFT AC INTACT, HEPARIN DRIP INFUSSING INDICATED, NEXT APTT DRAW SCHEDULED FOR 1245- BS MONITORED ORDERED, CONTROLLED PER ORAL MEDICATIONS- DRESSING NOTED C/D/I TO RLE- PT DENIES ANY C/O PAIN/DISCOMFORT AT THIS TIME- CALL LIGHT AND PERSONAL BELONGINGS WITH IN REACH- PT MAKES NEEDS KNOWN- ALL NEEDS MET AT THIS TIME-WCTM
[2018-12-08 12:14] LABS: INR 1.1; PROTIME 10.9 Seconds (9.20-11.50)
[2018-12-08 12:53] VITALS: BP 90/66
[2018-12-08 12:53] LABS: ANION GAP 8 mmol/L (7-16); BUN 26 mg/dL (7-18); CALCIUM 9.8 mg/dL (8.5-10.1); CHLORIDE 102 mmol/L (98-107); CHOLESTEROL 135 mg/dL (<200); CO2 30 mmol/L (21-32); GLUCOSE 141 mg/dL (70-99); HDL CHOLESTEROL 34 mg/dL (>40); LDL CHOLESTEROL 68 mg/dL (<100); POTASSIUM 4.2 mmol/L (3.5-5.1); SERUM ASSESSMENT Clear; SODIUM 140 mmol/L (136-145); TRIGLYCERIDE 169 mg/dL (<150); VLDL 34 mg/dL (<40)
--- NOTE | 2018-12-08 17:25 | NUR ---
PT CURRENTLY RESTING IN BED- LEATHER PRODUCTION WORKER IN PLACE ORDERED, TRACING SR- IV TO LEFT FA INTACT, HEPARIN INFUSSING PRESCIBED- APTT AT 1230 NOTED TO BE 58.1 WITH NO CHANGE NOTED- LAB/[facility] X-RAY RESULTS CALLED TO ORDERED AND REQUESTED; NO NEW ORDERED NOTED- CATH PLANNED 01/09/19, NPO AT MIDNIGHT- BP CONTINUES TO RUN LOW, COREG HELD THIS EVENING WELL- BS AT 1600 NOTED TO BE 88, EVENING GLIPIZIDE HELD- CALL LIGHT AND PERSONAL BELONGINGS WITH IN REACH- PT MAKES NEEDS KNOWN- ALL NEEDS MET AT THIS TIME-WCTM
[2018-12-08 17:43] VITALS: BP 91/57
[2018-12-08 20:00] VITALS: BP 100/66
[2018-12-09] VITALS (19 sets, daily range): BP systolic 102–156; BP diastolic 60–93
--- NOTE | 2018-12-09 02:41 | NUR ---
PT DROWSEY ORIENTED. NPO AT [place] FOR CARDIAC CATH IN AM. HEPARIN QTT ON AT 1364 UNITS/HR. TELEMETRY SHOWS SR. DENIES PAIN.
--- NOTE | 2018-12-09 11:04 | EKG ---
[place] [address] ELECTROCARDIOGRAM REPORT Name: LAURYN MORSECLEMENTINE FAYE Room: [address] ADM IN .R.#: [id number] Admission: 12/06/18 Attend Phys: Guru Dominguez Discharge: Date of : 69 Report #: [id number] THIS REPORT FOR: //name// [facility] Test Date: 2018-12-07 Test Time: 12:27:04 Pat Name: TRI MORSE Department: Room: [address] Gender: F Maintenance Millwright: CCD : 1965 Requested By: Arabella Guzmán Order Number: [id number] Mikhail MD: Camden Gatica Measurements Intervals [place] Rate: 92 P: 72 AR: 169 QRS: -13 QRSD: 85 T: 101 QT: 369 QTc: 457 Interpretive Statements Sinus rhythm Probable left atrial enlargement Inferior infarct, old Anterior infarct, recent Baseline wander in lead(s) V2 Compared to ECG 12/06/2018 08:44:08 Sinus tachycardia no longer present Ventricular premature complex(es) no longer present Electronically Signed On 12-09-2018 11:03:42 CDT by Camden Gatica [email or web address] <ELECTRONICALLY SIGNED> By: Camden Gatica MD, FACC 12/09/18 1103 1227 1227 Camden Gatica MD, FACC /EPI
--- NOTE | 2018-12-09 11:11 | EKG ---
[place] [address] ELECTROCARDIOGRAM REPORT Name: TRI MORSE Room: [address] ADM IN .R.#: [id number] Admission: 12/06/18 Attend Phys: Guru Dominguez Discharge: Date of : 69 Report #: [id number] THIS REPORT FOR: //name// [facility] Test Date: 2018-12-08 Test Time: 11:43:20 Pat Name: TRI MORSE Department: Room: [address] Gender: F Dinking Machine Operator: CCD : 1965 Requested By: Arabella Guzmán Order Number: [id number] Mikhail MD: Camden Gatica Measurements Intervals [place] Rate: 74 P: 64 OK: 166 QRS: 2 QRSD: 87 T: 89 QT: 379 QTc: 421 Interpretive Statements Sinus rhythm Inferior infarct, old Consider anterior infarct Lateral leads are also involved Electronically Signed On 12-09-2018 11:11:15 CDT by Camden Gatica [email or web address] <ELECTRONICALLY SIGNED> By: Camden Gatica MD, [facility] 12/09/18 1111 1143 1143 Camden Gatica MD, FACC /EPI
--- NOTE | 2018-12-09 11:19 | NUR ---
Pt is A&O. Resides at home with her boyfriend. Active and independent. No DME. Hx of [facility] . No hx of SNF. Pt had a cath today. Goal is home at dc, no needs anticipated.
--- NOTE | 2018-12-09 13:40 | NUR ---
ASSUMED CARE OF PATIENT THIS AM AT 0730. PATIENT IS ALERT AND ORIENTED X 4. SHE DENIES CHEST PAIN AND SOA. PATIENT TAKEN TO PROSTHETIC AIDES TEACHER PER BED THIS AM. SHE LATER RETURNED TO THE ROOM. PATIENT RECOVERED PER ORDERS. TELE SHOWS NSR. RIGHT RADIAL SITE INTACT. NO HEMATOMA NOTED. DIET ORDERED. IV FLUIDS INFUSING AT 75/HR. WILL CONTINUE TO MONITOR.
--- NOTE | 2018-12-09 16:58 | EKG ---
[place] [address] ELECTROCARDIOGRAM REPORT Name: TRI MORSE Room: [address] ADM IN [facility].#: [id number] Admission: 12/06/18 Attend Phys: Guru Dominguez Discharge: Date of : 69 Report #: [id number] THIS REPORT FOR: //name// [facility] Test Date: 2018-12-09 Test Time: 11:25:44 Pat Name: TRI MORSE Department: Room: [address] Gender: F Spring Machine Operator: : 1965 Requested By: Camden Gatica Order Number: [id number] Mikhail MD: Camden Gatica Measurements Intervals [place] Rate: 67 P: 59 OK: 182 QRS: -4 QRSD: 88 T: 55 QT: 384 QTc: 406 Interpretive Statements Sinus rhythm previous anterior infarction Low voltage, extremity leads Abnormal inferior Q waves Minimal ST elevation, anterior leads Compared to ECG 12/08/2018 11:43:20 no change Electronically Signed On 12-09-2018 16:57:56 CDT by Camden Gatica [email or web address] <ELECTRONICALLY SIGNED> By: Camden Gatica MD, FACC 12/09/18 1657 1125 1125 Camden Gatica MD, FACC /EPI
--- NOTE | 2018-12-09 17:47 | CARD ---
[address] [address] CARDIAC CATH REPORT Name: TRI MORSE Room: [address] IN [facility]#: [id number] Admission: 12/06/18 Attend Phys: Guru Dominguez Discharge: Date of : 69 Report #: [id number] THIS REPORT FOR: //name// APPROVED REPORT Study performed: 12/09/2018 08:12:55 Patient Details Patient Status: In-Patient Room #: The patient is a 53 year-old female Event Personnel Camden Gatica Food Safety Technician, Beatriz Mora RN RN, Stevenson Thornton RESIDENT ASSOCIATE Monitor, Alannah García RTR Scrub Procedures Performed cath pci Indication Abnormal ECG, Non-STEMI , Chest pain Risk Factors Hypercholesterolemia, Tobacco History () Previous Procedures/Diagnoses Previous PCI Admission/Lab Medications/Medications given during procedure Glycoprotein IllbIlla Inhibitors, Heparin Unfract. Procedure Narrative The patient was brought electively to the Cardiac Catheterization Laboratory and was prepped and draped in a sterile manner. The right wrist was infiltrated with 1% Lidocaine subcutaneous anesthesia. A Slender Glidesheath sheath was inserted into the right radial artery. Coronary angiography was performed using coronary diagnostic catheters. The right coronary system was accessed and visualized with a JR4 6fr catheter. The left coronary system was accessed and visualized with a JL 3.5 6frDiagnostic catheter. The left ventricle was accessed and visualized with a PC: Pig 6fr catheter. Left ventricular/Aortic Valve gradient assessed via catheter pullback. Left ventriculogram was performed in UMANZOR projection. Closure device was deployed with a 6 Fr Vasc-Band Reg 24cm. The patient tolerated the procedure well and there [place] [address] CARDIAC CATH REPORT Name: MORSETRI Room: [address]#: [id number] Admission: 12/06/18 Attend Phys: Guru Dominguez Discharge: Date of : 69 Report #: [id number] the procedure. There was no hematoma. Intraoperative Conscious Sedation Sedation start time: 917 Case end Time: 1031 Fentanyl 75 mcg Versed 6 mg Fluoro Time: 17.2 minutes Dose: DAP 414643 cGycm2 3155 mGy Contrast Type and Amount: Omnipaque 110 ml Coronary Angiography The patient's coronary anatomy is right dominant. Diagnostic Cath Left Main 0% stenosis LAD 90% proximal edge restenosis of a stent in the mid lad. Apical lad had narrow lumen consistent with diffuse atherosclerosis. Circumflex Stent in mid circumflex had 0% restenosis. Stent in distal circumflex had 99% restenosis. Right Coronary Stents in proximal and mid rca had 0% restenosis R PDA small vessel had 90% proximal stenosis noted. Left Ventriculography The left ventricular ejection fraction is estimated to be 20-25%. Left ventricular wall motion abnormalities are present. There is 1+ mitral insufficiency. Akinesis noted of the mid and distal anteroapical wall. Hemodynamics The aortic pressure is 115/74 mmHg with a mean of 91 mmHg. The left ventricular pressure is 117/10 mmHg with a mean of mmHg. The left ventricular end diastolic pressure is 25 mmHg. There was no gradient across the aortic valve upon pullback. Pullback from the left ventricle to the aorta revealed no gradient across the aortic valve. PCI Technique Lesion Anticoagulation was achieved with Heparin. bolus of iv aggrastat given Percutaneous coronary intervention was performed on the mid left anterior descending artery segment. The lesion stenosis prior to intervention was 90% with JASWINDER 2 flow. A 6FR XB LAD 3.0 100CM Guide Catheter was used to engage the lm ostium. A IG: BMW 190cm Interventional Guidewire was [place] [address] CARDIAC CATH REPORT Name: TRI MORSE Room: [address]#: [id number] Admission: 12/06/18 Attend Phys: Guru Dominguez Discharge: Date of : 69 Report #: [id number] BALLOON DILATION A Balloon catheter Trek RX 2.5 X 8 was inserted and inflated up to 8.00atm for 8seconds. Repeat angiography revealed the following post-dilatation results: 50% stenosis. Additional Inflation: 12.00atm for 16seconds. Additional Inflation: 17.00atm for 16seconds. STENT DEPLOYMENT A drug-eluting stent [place] RX Stent 2.77X05xu was inserted and inflated up to 9.00atm for 14seconds. Repeat angiography revealed the following post-stent deployment results: 0% stenosis. Additional Inflation: 16.00atm for 25seconds. Additional Inflation: 19.00atm for 15seconds. Final angiography reveals 0 % stenosis with JASWINDER 3 flow. PCI Technique Lesion 2 Percutaneous Coronary Intervention was performed on the distal circumflex artery segment. Percutaneous coronary intervention was performed on the distal circumflex artery segment. The lesion stenosis prior to intervention was 99% with JASWINDER 3 flow. A 6FR XB LAD 3.0 100CM Guide Catheter was used to engage the lm ostium. A IG: BMW 190cm Interventional Guidewire was used to cross the lesion. Balloon Dilation A Balloon catheter Mini Trek RX 2.0 X 8 was inserted and inflated up to 12.00atm for 16seconds. Repeat angiography revealed the following post-dilatation results: 50% stenosis. Additional Inflation: 14.00atm for 16seconds. Additional Inflation: 14.00atm for 16seconds. Stent Deployment A drug-eluting stent Xience Zina 2.80A10zh was inserted and inflated up to 10.00atm for 28seconds. Repeat angiography revealed the following post-stent deployment results: 0% stenosis. Additional Inflation: 15.00atm for 21seconds. Additional Inflation: 16.00atm for 10seconds. Final angiography reveals 0 % stenosis with JASWINDER 3 flow. Conclusion 1. 90% stenosis of the proximal edge of a stent in the mid lad, and 99% restenosis of stent in the distal circumflex artery. 2. 90% stenosis of a small PDA branch of the distal rca 3. LVEF 20-25% 4. successful placement of drug eluting stents in the mid lad and distal circumflex [address] [address] CARDIAC CATH REPORT Name: TRI MORSE Room: [address] IN M.R.#: [id number] Admission: 12/06/18 Attend Phys: Guru Dominguez Discharge: Date of : 69 Report #: [id number] Recommendations Cardiac Rehabilitation Referral Aggressive Medical Therapy Medications Administered Clopidogrel <ELECTRONICALLY SIGNED> By: Camden Gatica MD, FACC 12/09/18 1747 [id number] Gatica MD, FACRebeca /INF
[2018-12-10 00:48] VITALS: BP 144/73
--- NOTE | 2018-12-10 02:38 | NUR ---
PT ALERT ORIENTED. UP WITH STAND BY ASSIST OF ONE. TELEMETRY SHOWS SR. R RADIAL SITE DRSG D/I. PT'S NEICE SPENDING THE NIGHT IN ROOM WITH PT.
[2018-12-10 04:00] VITALS: BP 137/83
[2018-12-10 05:10] LABS: HEMATOCRIT 34.8 % (37.0-47.0); HEMOGLOBIN 11.7 gm/dL (12.0-15.0); MCH 31.5 pg (26.0-34.0); MCHC 33.7 g/dL (28.0-37.0); MCV 93.3 fL (80.0-100.0); MPV 7.7 fl. (7.2-11.1); RBC 3.73 mil/uL (4.20-5.00); RDW-CV 16.6 % (10.5-14.5); WBC 6.5 thou/uL (4.0-11.0)
[2018-12-10 05:20] LABS: CALCIUM 9.9 mg/dL (8.5-10.1); CREATININE 0.9 mg/dL (0.6-1.3); MAGNESIUM 1.8 mg/dL (1.8-2.4); POTASSIUM 4.4 mmol/L (3.5-5.1)
[2018-12-10 08:00] VITALS: BP 110/75
[2018-12-10 09:49] VITALS: BP 151/90
[2018-12-10] MEDS ORDERED: COZAAR 25 MG TA25 M1 PO (11:03)
[2018-12-10] MEDS ORDERED: SPIRONOLACTONE25 MG PO (11:04)
[2018-12-10] MEDS ORDERED: CARVEDILOL12.5 MG PO (11:07)
[2018-12-10] MEDS ORDERED: ASPIR 8181 MG PO (11:09)
--- NOTE | 2018-12-10 11:09 | NUR ---
Maxine from [facility] here, anticipate that Pt will qualify for [place] JOHN, zaid taken
[2018-12-10 11:26] VITALS: BP 151/90
--- NOTE | 2018-12-10 13:36 | EKG ---
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[id number] Requested By: Camden Gatica Order Number: [id number] Reading MD: Bernardo Lawrence Measurements Intervals [place] Rate: 79 P: 73 WA: 172 QRS: -16 QRSD: 90 T: 91 QT: 358 QTc: 411 Interpretive Statements Sinus rhythm Borderline left axis deviation Low voltage, extremity and precordial leads Consider inferior infarct Nonspecific T abnormalities, lateral leads Compared to ECG 12/09/2018 11:25:44 T-wave abnormality now present Inferior Q waves no longer present Q waves no longer present ST (T wave) deviation no longer present Myocardial infarct finding still present Electronically Signed On 12-10-2018 13:36:19 CDT by Bernardo Lawrence [email or web address] <ELECTRONICALLY SIGNED> By: Bernardo Lawrence MD, FACC 12/10/18 1336 3 3 Bernardo Lawrence MD, FACC /EPI
== END 2018-12-10 14:49 | disposition home or self-care (01) | DRG 246 ==
LOC: M.ERS 08:36 → M.2W 09:52 → M.TBA-ER 09:52 → M.2W 12:11
PROVIDERS: Family Medicine; Internal Medicine; Internal Medicine Cardiovascular Disease; ADMIT Internal Medicine
PROC: 4A023N7 Measurement of Cardiac Sampling and Pressure, Left Heart, Percutaneous Approach (ICD-10-PCS; principal; 2018-12-09)
PROC: B2111ZZ Fluoroscopy of Multiple Coronary Arteries using Low Osmolar Contrast (ICD-10-PCS; principal; 2018-12-09)
PROC: B2151ZZ Fluoroscopy of Left Heart using Low Osmolar Contrast (ICD-10-PCS; principal; 2018-12-09)
PROC: 027135Z Dilation of Coronary Artery, Two Arteries with Two Drug-eluting Intraluminal Devices, Percutaneous Approach (ICD-10-PCS; principal; 2018-12-09)
DX: T82.855A Stenosis of coronary artery stent, initial encounter (principal); I21.4 Non-ST elevation (NSTEMI) myocardial infarction; I50.23 Acute on chronic systolic (congestive) heart failure; E78.00 Pure hypercholesterolemia, unspecified; E66.8 Other obesity; I25.10 Atherosclerotic heart disease of native coronary artery without angina pectoris; I25.5 Ischemic cardiomyopathy; I11.0 Hypertensive heart disease with heart failure; F19.10 Other psychoactive substance abuse, uncomplicated; F17.210 Nicotine dependence, cigarettes, uncomplicated; E78.5 Hyperlipidemia, unspecified; Y83.8 Other surgical procedures as the cause of abnormal reaction of the patient, or of later complication, without mention of misadventure at the time of the procedure; E11.9 Type 2 diabetes mellitus without complications; Z90.49 Acquired absence of other specified parts of digestive tract; Z95.5 Presence of coronary angioplasty implant and graft; Z79.84 Long term (current) use of oral hypoglycemic drugs; I25.2 Old myocardial infarction; Z98.891 History of uterine scar from previous surgery; Z68.34 Body mass index [BMI] 34.0-34.9, adult; Y92.89 Other specified places as the place of occurrence of the external cause